=== PATIENT | male | born 1955 | race Caucasian/White ===

== ENCOUNTER → 2019-08-01 13:23 | Outpatient (CLI) | payer MEDICARE, OTHER, SELFPAY ==
--- NOTE | 2019-08-01 13:33 | US_ITS ---
APPROVED REPORT Exam Type: Lower Extremity Segmental Pressures Prop And Scenery Maker: Phuong Fam RVT Indications Claudication: Bilaterally Rest Pain: Bilaterally History of Smoking Risk Factors CAD Hyperlipidemia Cardiac Disease Diabetes History of Smoking Pressures/Indices Right Indices Left Indices Brachial 113.00 mmHg Brachial 115.00 mmHg Low Thigh 138.00 mmHg 1.20 Low Thigh 112.00 mmHg 0.97 Calf 140.00 mmHg 1.22 Calf 128.00 mmHg 1.11 Ankle(PT) 165.00 mmHg 1.43 Ankle(PT) 112.00 mmHg 0.97 Ankle(DP) 157.00 mmHg 1.37 Ankle(DP) 116.00 mmHg 1.01 Digit 71.00 mmHg 0.62 Digit 29.00 mmHg 0.25 Findings RT VIKTOR:1.43 LT VIKTOR:0.97 RT TBI:0.62 LT TBI:0.25 NORMAL PULSES BILATERAL DAMPENED WAVEFORM SEEN LEFT ANKLE, OTHER LEVELS ARE NORMAL Conclusion RT VIKTOR:1.43 LT VIKTOR:0.97 RT TBI:0.62 LT TBI:0.25 NORMAL PULSES BILATERAL DAMPENED WAVEFORM SEEN LEFT ANKLE, OTHER LEVELS ARE NORMAL ELEVATED RIGHT VIKTOR SUGGEST VESSEL HARDENING FROM PVD LOW LEFT TBI SUGGESTS SMALL VESSEL DISEASE Electronically signed by : Jordi Veliz MD 08/01/2019 18:17:34
== END ==
PROVIDERS: PCP Internal Medicine Adolescent Medicine; Visit Provider Internal Medicine Adolescent Medicine
DX: I70.213 Atherosclerosis of native arteries of extremities with intermittent claudication, bilateral legs (principal); I25.10 Atherosclerotic heart disease of native coronary artery without angina pectoris
CPT/HCPCS: 93923

== ENCOUNTER 2019-08-16 10:00 | Outpatient (RCR) | payer MEDICARE, SELFPAY | END 2019-08-16 10:05 | disposition home or self-care (01) | LOC: PT 10:00 | PROVIDERS: PCP Internal Medicine Adolescent Medicine; Visit Provider Internal Medicine Adolescent Medicine | DX: S39.012A Strain of muscle, fascia and tendon of lower back, initial encounter (principal) | CPT/HCPCS: 97010; 97014; 97110; 97163; G0283 ==

== ENCOUNTER → 2020-08-05 06:28 | Outpatient (CLI) | payer MEDICARE, SELFPAY ==
--- NOTE | 2020-08-05 06:29 | US_ITS ---
PROCEDURE: US AORTA CLINICAL INDICATION: tobacco user Aortic aneurysm screening COMPARISON: No exams were available for comparison FINDINGS: There is a fusiform aneurysm noted in the mid abdominal aorta measuring 3.4 x 3.5 cm. This is 4 cm below the xiphoid region. Common iliacs have an unremarkable appearance. IMPRESSION: 3.5 cm fusiform abdominal aortic aneurysm Dictated by: Jordi Veliz MD 08/05/2020 18:02 Jordi Veliz MD in [place] 08/05/2020 18:02
--- NOTE | 2020-08-05 06:29 | CA_ITS ---
APPROVED REPORT Explosive Operator Grenade: Phuong Fam RVT Laterality: Bilateral Study Quality: Good Indications: bilateral carotid bruits,cad Risk Factors Hyperlipidemia Smoking Medications Aspirin Doppler Spectral Velocity Analysis ECA (R) 116.60/16.00 cm/s ECA (L) 133.90/17.30 cm/s dICA (R) 111.20/33.10 cm/s dICA (L) 82.80/26.00 cm/s Daniel (R) 124.00/24.60 cm/s Daniel (L) 107.90/28.90 cm/s pICA (R) 163.60/34.20 cm/s pICA (L) 101.10/23.10 cm/s dCCA (R) 93.40/23.10 cm/s dCCA (L) 86.70/24.10 cm/s pCCA (R) 82.80/11.60 cm/s pCCA (L) 114.40/31.00 cm/s Vert (R) 79.10/21.40 cm/s Vert (L) 49.10/11.60 cm/s ICA/CCA 1.75 ICA/CCA 1.24 Findings Study suggests 50-69% stenosis of the right internal cartoid artery. Study suggests less than 20% stenosis of the left internal cartoid artery. Antegrade flow seen bilateral vertebral arteries. Conclusion Study suggests 50-69% stenosis of the right internal cartoid artery. Study suggests less than 20% stenosis of the left internal cartoid artery. Antegrade flow seen bilateral vertebral arteries. Electronically signed by : Jordi Veliz MD 08/05/2020 18:30:38
--- NOTE | 2020-08-05 06:29 | NM_ITS ---
APPROVED REPORT Exam: Nuclear Stress Test Indication: SOB, CAD, CABG, DM, High cholesterol, Tobacco use, Family history Patient Location: Outpatient Stress Tech: Valeria Pike ID Tech:Ileana Lucas ARRT, RT (R)(N) Ht: 5 ft 11 in Wt: 260 lbs HR: 59 bpm BP: 140/87 mmHg BSA: 2.36 m2 BMI: 36.2 History: SOB, CAD, CABG, DM, High cholesterol, Tobacco use, Family history Procedure: Patient received a 0.4 mg of intravenous Lexiscan, resting heart rate 59 bpm, resting blood pressure 140/87 mmHg, with Lexiscan maximum heart rate achived was 80 bpm which is % of the maximum predicted heart rate and blood pressure was 129/63 mmHg. Cardiac Stress and Resting SPECT Images: Cardiac Stress and Resting SPECT images were obtained using technetium 99m Myoview 31.8 mCi stress and 10.42 mCi at rest. EF 55% no fixed or reversible defects Conclusion: EF 55% no fixed or reversible defects Electronically signed by : Jordi Veliz MD 08/11/2020 13:24:00
--- NOTE | 2020-08-05 06:29 | CA_ITS ---
APPROVED REPORT Exam: Pharmacologic Technologist: Valeria Pike Ht: 5 ft 11 in Wt: 260 lbs BSA: 2.36 m2 HR: 59 bpm BP: 140/87 mmHg Indications: CAD, SOB, Bruit bilat Medical History Medications: Omeprazole,,,,, Aspirin,,,,, Metformin,,,,, Trazadone,,,,, Ferrous sulfate,,,,, Vitamin B12,,,,, Vitamin D3,,,,, Atorvastatin,,,,, HCTZ,,,,, Carvedilol,,,,, ClonAZEPAM,,,,, Calcium,,,,, Stress Test Details Test: LEXISCAN HR Resting HR: 61 bpm Max Heart Rate (APMHR): 154 bpm Max HR Achieved: 84 bpm Target HR (85% APMHR): 130 bpm % of APMHR: 54 Recovery HR: 73 bpm BP Resting BP: 140.0/87.0 mmHg Max BP: 140.0/87.0 mmHg Recovery BP: 129.0/64.0 mmHg ECG Resting ECG: Normal sinus rhythm, rightward axis, PVCs, T wave abnormality inferiorly. Clinical Exercise duration: 04:03 min Highest Stage Achieved: Exercise capacity: 1.0 METs Stress ECG Conclusion Symptoms: Chest tightness, brief shortness of air, mild stomach discomfort. Arrhythmias/Ectopy: Frequent isolated PVCs ST-T Changes: No significant changes. Conclusion: Unremarkable Lexiscan stress. Myoview images reported separately. Electronically signed by : Alejandro Fajardo, 08/07/2020 15:14:50
--- NOTE | 2020-08-05 08:09 | HMH.ITSHM ---
Current Home Medications as stated by this patient Fernando Joyner or airline security representative. []ASA ATORVASTATIN CALCIUM CARVEDILOL CENTRUM SILVER CLONAZEPAM HCTZ IRON METFORMIN OMEPRAZOLE TRAZODONE VENLAFAXINE B12 VITMAIN D3
[2020-08-05 09:16] LABS: Basophils % 0.4 % (0.1-2.0); Eosinophils # 0.2 K/mm3 (0.0-0.4); Eosinophils % 2.7 % (0.1-12.0); Hematocrit 45.8 % (42.0-52.0); Hemoglobin 14.5 g/dL (14.1-18.0); Lymphocytes % 32.6 % (10-50); Mean Corpuscular HGB Conc 31.8 g/dL (31.8-35.4); Mean Corpuscular Hemoglobin 28.8 pg (27.0-31.2); Mean Corpuscular Volume 90.7 fl (80-94); Mean Platelet Volume 8.4 fl (7.4-10.4); Monocytes # 0.4 K/mm3 (0.1-1.0); Monocytes % 6.4 % (1.7-9.3); Neutrophils # 3.5 K/mm3 (1.8-7.8); Neutrophils % 57.9 % (37.0-80.0); Platelet Count 134 K/mm3 (142-424); Red Blood Count 5.05 M/mm3 (4.60-6.20); Red Cell Distribution Width 14.6 % (11.5-17.5)
[2020-08-05 09:44] LABS: Chloride 104 mmol/L (98-107); Sodium 141 mmol/L (136-145)
[2020-08-05 09:45] LABS: Potassium 4.8 mmoL/L (3.5-5.1)
[2020-08-05 09:47] LABS: Alanine Aminotransferase 60 U/L (12-78); Alkaline Phosphatase 70 U/L (38-126); Anion Gap 10.8 mEq/L (5-15); Aspartate Amino Transferase 42 U/L (17-59); Bilirubin,Direct 0.1 mg/dl (0.0-0.4); Bilirubin,Indirect 0.7 mg/dL (0.0-0.9); Bilirubin,Total 0.8 mg/dl (0.2-1.3); Bilirubin,Unconjugated 0.7 mg/dL (0.0-1.1); Blood Urea Nitrogen 11 mg/dl (9-20); Carbon Dioxide 31 mmol/L (22.0-30.0); Cholesterol 118 mg/dl (140-200); Estimated Glomerular Filt Rate 113 ml/min (>60); GFR (African American) 137 ML/MIN (>60); Triglycerides 110 mg/dl (30-150); VLDL Cholesterol 22 mg/dL (0-40)
[2020-08-05 09:48] LABS: Albumin Level 4.5 g/dl (3.5-5.0); Calcium 9.8 mg/dl (8.4-10.2); Glucose 132 mg/dl (74-100); HDL Cholesterol 40 mg/dl (40-60); Total Protein,Serum 7.4 g/dl (6.3-8.2)
[2020-08-05 09:59] LABS: Direct LDL Cholesterol 59.82 mg/dL (100-129)
[2020-08-05 10:00] LABS: NT Pro Brain Natriuretic Pep. 540 pg/mL (0-125)
[2020-08-05 10:05] LABS: Free T4 (Free Thyroxine) 1.01 ng/dl (0.78-2.19)
[2020-08-05 10:18] LABS: Thyroid Stimulating Hormone 1.25 uIU/mL (0.465-4.68)
== END ==
PROVIDERS: PCP Internal Medicine Adolescent Medicine; Visit Provider Internal Medicine Cardiovascular Disease
DX: E11.9 Type 2 diabetes mellitus without complications (principal); G47.33 Obstructive sleep apnea (adult) (pediatric); I25.810 Atherosclerosis of coronary artery bypass graft(s) without angina pectoris; R06.00 Dyspnea, unspecified; R09.89 Other specified symptoms and signs involving the circulatory and respiratory systems; R60.9 Edema, unspecified; R94.31 Abnormal electrocardiogram [ECG] [EKG]; Z72.0 Tobacco use; Z95.1 Presence of aortocoronary bypass graft; Z79.84 Long term (current) use of oral hypoglycemic drugs
CPT/HCPCS: 36415; 76770; 78452; 80048; 80061; 80076; 83880; 84439; 84443; 85025; 93017; 93306; 93880; A9502; J2785

== ENCOUNTER → 2020-08-05 08:52 | Outpatient (CLI) | payer MEDICARE, SELFPAY | PROVIDERS: Visit Provider Internal Medicine Cardiovascular Disease | DX: I25.10 Atherosclerotic heart disease of native coronary artery without angina pectoris (principal) | CPT/HCPCS: 36415; 80048; 80061; 80076; 83880; 84439; 84443; 85025 ==

== ENCOUNTER → 2020-10-13 08:23 | Outpatient (CLI) | payer MEDICARE, SELFPAY ==
[2020-10-14 09:22] LABS: Hemoglobin A1C 6.2 % (4.0-6.0)
== END ==
PROVIDERS: Visit Provider Internal Medicine Adolescent Medicine
DX: E11.9 Type 2 diabetes mellitus without complications (principal); Z79.84 Long term (current) use of oral hypoglycemic drugs
CPT/HCPCS: 83036

== ENCOUNTER → 2020-10-30 11:31 | Outpatient (CLI) | payer MEDICARE, SELFPAY | PROVIDERS: Visit Provider Internal Medicine Cardiovascular Disease | DX: R06.00 Dyspnea, unspecified (principal); I25.810 Atherosclerosis of coronary artery bypass graft(s) without angina pectoris; R60.9 Edema, unspecified; R94.31 Abnormal electrocardiogram [ECG] [EKG]; Z95.1 Presence of aortocoronary bypass graft; Z72.0 Tobacco use | CPT/HCPCS: 93225 ==

== ENCOUNTER → 2020-11-10 15:02 | Outpatient (CLI) | payer MEDICARE, SELFPAY ==
--- NOTE | 2020-11-10 15:02 | MR_ITS ---
PROCEDURE: MR HEAD/BRAIN WO CON CLINICAL INDICATION: tremor, dysmetria Tremor and dizziness. No prior. COMPARISON: No exams were available for comparison TECHNIQUE: Routine multiplanar multi echo sequences are performed without gadolinium enhancement. FINDINGS: No midline shift, mass effect, intracranial hemorrhage, or hydrocephalus. The cerebellopontine angles, cerebellum, and brainstem have an unremarkable appearance. There is mild generalized atrophy with nonspecific minimal periventricular T2 white matter changes. The pituitary, optic chiasm, corpus callosum, and craniocervical junction have an unremarkable appearance. No mastoid effusion or sinus air-fluid level. No evidence of acute infarction. There is some mild superior vermian atrophy. The the hippocampal gyri and temporal horns have an unremarkable appearance IMPRESSION: There is mild generalized cerebral atrophy and superior vermian atrophy. Otherwise negative Dictated by: Jordi Veliz MD 11/11/2020 07:39 Jordi Veliz MD in [place] 11/11/2020 07:39
== END ==
PROVIDERS: PCP Internal Medicine Adolescent Medicine; Visit Provider Specialist
DX: R25.1 Tremor, unspecified (principal)
CPT/HCPCS: 70551

== ENCOUNTER → 2020-11-12 10:03 | Outpatient (CLI) | payer MEDICARE, SELFPAY ==
[2020-11-12 11:18] LABS: Anion Gap 11.6 mEq/L (5-15); Blood Urea Nitrogen 11 mg/dl (9-20); Calcium 9.6 mg/dl (8.4-10.2); Carbon Dioxide 29 mmol/L (22.0-30.0); Chloride 106 mmol/L (98-107); Estimated Glomerular Filt Rate 97 ml/min (>60); GFR (African American) 117 ML/MIN (>60); Glucose 119 mg/dl (74-100); Potassium 5.6 mmoL/L (3.5-5.1); Sodium 141 mmol/L (136-145)
== END ==
PROVIDERS: Visit Provider Internal Medicine Cardiovascular Disease
DX: G47.33 Obstructive sleep apnea (adult) (pediatric) (principal); I25.810 Atherosclerosis of coronary artery bypass graft(s) without angina pectoris; R06.00 Dyspnea, unspecified; R60.9 Edema, unspecified; R94.31 Abnormal electrocardiogram [ECG] [EKG]; Z72.0 Tobacco use; Z95.1 Presence of aortocoronary bypass graft
CPT/HCPCS: 80048

== ENCOUNTER → 2020-11-17 10:10 | Outpatient (CLI) | payer MEDICARE, SELFPAY ==
[2020-11-17 12:10] LABS: Anion Gap 12.4 mEq/L (5-15); Blood Urea Nitrogen 11 mg/dl (9-20); Calcium 9.2 mg/dl (8.4-10.2); Carbon Dioxide 25 mmol/L (22.0-30.0); Chloride 106 mmol/L (98-107); Estimated Glomerular Filt Rate 113 ml/min (>60); GFR (African American) 137 ML/MIN (>60); Glucose 113 mg/dl (74-100); Magnesium 1.8 mg/dl (1.6-2.3); Potassium 4.4 mmoL/L (3.5-5.1); Sodium 139 mmol/L (136-145)
[2020-11-17 12:29] LABS: Free Thyroxine Index 2.6 ug/dL (5.93-13.13); T4 (Thyroxine) 7.4 ug/dl (5.53-11.0); Triiodothryronine (T3) Uptake 35 % (23.5-40.5)
[2020-11-17 12:42] LABS: Thyroid Stimulating Hormone 1.25 uIU/mL (0.465-4.68)
[2020-11-17 13:18] LABS: Vitamin B12 960 pg/mL (239-931)
[2020-11-17 13:27] LABS: Folate > 20.00 ng/mL
== END ==
PROVIDERS: Specialist; Visit Provider Physician Assistant
DX: E11.69 Type 2 diabetes mellitus with other specified complication (principal); G47.33 Obstructive sleep apnea (adult) (pediatric); I25.810 Atherosclerosis of coronary artery bypass graft(s) without angina pectoris; R06.00 Dyspnea, unspecified; R60.9 Edema, unspecified; R94.31 Abnormal electrocardiogram [ECG] [EKG]; Z72.0 Tobacco use; Z95.1 Presence of aortocoronary bypass graft; Z79.84 Long term (current) use of oral hypoglycemic drugs
CPT/HCPCS: 36415; 80048; 82607; 82746; 83735; 84436; 84443; 84479

== ENCOUNTER → 2020-11-26 20:03 | Outpatient (CLI) | payer MEDICARE, SELFPAY | PROVIDERS: PCP Internal Medicine Adolescent Medicine; Visit Provider Specialist | DX: G47.33 Obstructive sleep apnea (adult) (pediatric) (principal); R40.0 Somnolence; R53.83 Other fatigue; E66.9 Obesity, unspecified; Z68.35 Body mass index [BMI] 35.0-35.9, adult | CPT/HCPCS: 95810 ==

== ENCOUNTER → 2021-01-12 08:00 | Outpatient (CLI) | payer MEDICARE, SELFPAY ==
[2021-01-13 09:07] LABS: Hemoglobin A1C 6.6 % (4.0-6.0)
[2021-01-13 09:13] LABS: Chloride 105 mmol/L (98-107); Potassium 4.6 mmoL/L (3.5-5.1); Sodium 139 mmol/L (136-145)
[2021-01-13 09:15] LABS: Alanine Aminotransferase 94 U/L (12-78); Aspartate Amino Transferase 60 U/L (17-59); Blood Urea Nitrogen 11 mg/dl (9-20); Estimated Glomerular Filt Rate 97 ml/min (>60); GFR (African American) 117 ML/MIN (>60)
[2021-01-13 09:16] LABS: Albumin Level 4.2 g/dl (3.5-5.0); Albumin/Globulin Ratio 1.5 (1.1-1.8); Alkaline Phosphatase 93 U/L (38-126); Anion Gap 14.6 mEq/L (5-15); Bilirubin,Total 0.5 mg/dl (0.2-1.3); Carbon Dioxide 24 mmol/L (22.0-30.0); Chol/HDL Ratio 2.9 (1-3.5); Cholesterol 108 mg/dl (140-200); Globulin 2.8 g/dL (1.3-3.2); Glucose 140 mg/dl (74-100); HDL Cholesterol 37 mg/dl (40-60); Triglycerides 100 mg/dl (30-150); VLDL Cholesterol 20 mg/dL (0-40)
[2021-01-13 09:27] LABS: Direct LDL Cholesterol 55.28 mg/dL (100-129)
== END ==
PROVIDERS: Visit Provider Internal Medicine Adolescent Medicine
DX: E11.9 Type 2 diabetes mellitus without complications (principal); E78.5 Hyperlipidemia, unspecified; Z79.84 Long term (current) use of oral hypoglycemic drugs
CPT/HCPCS: 80053; 80061; 83036

== ENCOUNTER → 2021-03-11 09:30 | Outpatient (CLI) | payer MEDICARE, SELFPAY ==
[2021-03-11 11:01] LABS: Alanine Aminotransferase 84 U/L (12-78); Alkaline Phosphatase 77 U/L (38-126); Aspartate Amino Transferase 58 U/L (17-59); Bilirubin,Direct 0.2 mg/dl (0.0-0.4); Bilirubin,Indirect 0.5 mg/dL (0.0-0.9); Bilirubin,Total 0.7 mg/dl (0.2-1.3); Bilirubin,Unconjugated 0.5 mg/dL (0.0-1.1); Chol/HDL Ratio 2.8 (1-3.5); Cholesterol 104 mg/dl (140-200); HDL Cholesterol 37 mg/dl (40-60); Total Protein,Serum 6.5 g/dl (6.3-8.2); Triglycerides 145 mg/dl (30-150); VLDL Cholesterol 29 mg/dL (0-40)
[2021-03-11 11:12] LABS: Direct LDL Cholesterol 49.03 mg/dL (100-129)
== END ==
PROVIDERS: Visit Provider Internal Medicine Cardiovascular Disease
DX: G47.33 Obstructive sleep apnea (adult) (pediatric); I25.10 Atherosclerotic heart disease of native coronary artery without angina pectoris; R06.00 Dyspnea, unspecified; R09.89 Other specified symptoms and signs involving the circulatory and respiratory systems; R60.9 Edema, unspecified; R94.31 Abnormal electrocardiogram [ECG] [EKG]; Z72.0 Tobacco use; Z95.1 Presence of aortocoronary bypass graft; Z79.84 Long term (current) use of oral hypoglycemic drugs; E11.9 Type 2 diabetes mellitus without complications
CPT/HCPCS: 36415; 80061; 80076

== ENCOUNTER → 2021-11-10 11:01 | Outpatient (CLI) | payer MEDICARE, SELFPAY ==
--- NOTE | 2021-11-10 11:07 | CT_ITS ---
FINAL REPORT CLINICAL HISTORY: HISORY OF NICOTINE DEPENDENCE, smoker 1 ppd x 43 years. family hx CAD/Bypass FINDINGS: Low-Dose Chest CT CTDI vol (mGy): 2.7 DLP (mGy-cm): 113.1 Axial images were obtained from the lung apex to the mid abdomen by computed tomography. Low-dose protocol was utilized. FINDINGS: CHEST: There are postoperative changes from median sternotomy. There is no axillary adenopathy. There is no hilar or mediastinal adenopathy. The heart is proper size. There is no pericardial or pleural effusion. Limited images of the upper abdomen demonstrate postoperative changes of the stomach. Lung window images demonstrate mild changes of emphysema and mild pulmonary scarring. There is mild diffuse bronchial wall thickening consistent with bronchitis. IMPRESSION: No mass or nodule is identified. Mild diffuse bronchial wall thickening consistent with bronchitis. Lung RADS category 1. Recommend 12 month follow-up low-dose chest CT. Reviewed, Interpreted and Dictated by Je Alexander III, MD Transcribed by Mei Ramos Authenticated and [facility]
--- NOTE | 2021-11-10 11:27 | CA_ITS ---
FINAL REPORT TECHNIQUE: Color Doppler, duplex Doppler and stack scale sonography of the bilateral neck vasculature was performed. Velocities were measured in the carotid arteries. Stenosis evaluation based on velocity criteria. CLINICAL HISTORY: bilateral carotid artery stenosis FINDINGS: The peak systolic velocity of the right common carotid artery is 75 cm/sec and internal carotid artery 119 cm/sec. The diastolic velocity in the internal carotid artery is 30 cm/sec. The ICA/CCA ratio is 1.6. Visually, a moderate amount of plaque is seen. These findings are consistent with less than 50% stenosis. The external carotid artery is patent. The right vertebral artery is patent with antegrade flow. The peak systolic velocity of the left common carotid artery is 72 cm/sec and internal carotid artery 81 cm/sec. The diastolic velocity in the internal carotid artery is 28 cm/sec. The ICA/CCA ratio is 1.2. Visually, a mild amount of plaque is seen. These findings are consistent with less than 50% stenosis. The external carotid artery is patent. The left vertebral artery is patent with antegrade flow. IMPRESSION: Less than 50% bilateral carotid stenosis. Bilateral patent vertebral arteries. If indicated, CTA or MRA could further evaluate. Reviewed, Interpreted and Dictated by Je Alexander III, MD Transcribed by Shaquille Blank Authenticated and [facility]
== END ==
PROVIDERS: PCP Internal Medicine Adolescent Medicine; Visit Provider Internal Medicine Adolescent Medicine
DX: I65.23 Occlusion and stenosis of bilateral carotid arteries (principal); Z87.891 Personal history of nicotine dependence; Z12.2 Encounter for screening for malignant neoplasm of respiratory organs
CPT/HCPCS: 71271; 93880

== ENCOUNTER → 2021-11-30 15:26 | Outpatient (CLI) | payer MEDICARE, SELFPAY | PROVIDERS: PCP Internal Medicine Adolescent Medicine; Visit Provider Internal Medicine | DX: Z01.812 Encounter for preprocedural laboratory examination (principal); Z20.822 Contact with and (suspected) exposure to COVID-19; Z12.11 Encounter for screening for malignant neoplasm of colon | CPT/HCPCS: C9803; U0003; U0005 ==

== ENCOUNTER 2021-12-02 09:08 | Day surgery (SDC) | payer MEDICARE, SELFPAY ==
[2021-11-30 12:23] VITALS: BMI 29.8
[2021-12-02 09:27] VITALS: BP 138/60; PULSE 66; RESP 18; TEMP 36.4; O2SAT 100
[2021-12-02 09:55] LABS: POC Glucose,Bedside 106 (70-110)
--- NOTE | 2021-12-02 10:28 | P.PN_ITS ---
[facility] Anesthesia Checklist - Patient Identification Patient Identification: Arm Band - Structural Data Admitted From: Home Planned Operative Procedure/s: Colonoscopy Consent for Planned Operative Procedure(s) Verified: Yes - NPO Status Verified Time NPO: 07:30 (Water) - Airway Assessment C-Spine Mobility Assessed: Yes TMJ Mobility Assessed: Yes Dentition: Poor Dentition - Neurological Assessment Level of Consciousness: Awake Hx Seizures: No Numbness or tingling in extremities: No - Anesthesia Plan Anesthesia Risk discussed: Yes Anesthesia Plan: Verified ASA Class: III Anesthesia Type: MAC [facility] History I have reviewed the patient's past medical history: Yes Medical History: Reports:: Cancer (SKIN CANCER ON BACK REMOVED), Coronary Artery Disease, Diabetes Mellitus Type 2, Gastroesophageal Reflux Disease(GERD), Hyperlipidemia, Hypertension Denies:: Diabetes Mellitus Type 1, Internal Pacemaker, MRSA, Seizures *Have you ever received a pneumonia vaccine?: Yes *Have you received a flu vaccine this season?: Yes Other Medical History: Reports: Anemia, Other Anesthesia experience/problems:: None Other Surgeries: Yes: CABG, Colonoscopy, Hernia Repair. No: Pacemaker Amputation: No Fractures: No - *Social History Last grade of school completed: High school graduate Smoking Status: Current every day smoker Tobacco Type: cigarettes # Packs/Day (cigarettes): 1 #Yrs smoked (if former smoker): 40 Smoking End Date: QUIT 18 YRS RESTARTED 3 YEARS AGO Alcohol Intake: current Alcohol Intake Frequency:: a few times a month Substance Use Type: denies use *Occupational Status:: retired Housing: house Household Members: none *Travel in the last 8 weeks: None Family Hx:: Diabetes, Other
[2021-12-02 11:02] VITALS: O2SAT 100
[2021-12-02 11:23] VITALS: BP 85/48; PULSE 61; RESP 16; TEMP 36.6; O2SAT 92
--- NOTE | 2021-12-02 11:25 | P.PCN_ITS ---
- Procedure: Date: 12/02/21 Patient Date of :: 1955 Procedure Performed:: Colonoscopy Indications:: The patient is a 66 year old who presents for surveillance colonoscopy for a history of colon polyps. Performing Provider:: Eddie Jarquin MD Referring Provider:: Joseph Duron MD Sedation:: See RN records Procedure:: After placing the patient in the left lateral decubitus position, the colonoscopy was gently inserted into the rectum and under direct visualization advanced to the cecum which was identified by transillumination in the right lo wer quadrant, identification of the ileocecal valve, appendiceal orifice, and cecal strap. Color, texture, mucosa, and anatomy of the colon were carefully examined with the scope. Findings:: Anal canal: normal Rectum: Internal hemorrhoids Sigmoid colon: Diverticulosis Descending colon: normal without polyps or inflammatory changes Splenic flexure: normal Transverse colon: normal without polyps or inflammatory changes Hepatic flexure: normal Ascending colon: Diverticulosis Cecum: normal Terminal ileum: not visualized Quality of the bowel preparation was fair. Time spent irrigating and cleansing mucosa. Recommendations:: Higher fiber diet Repeat colonoscopy in 5 years Complications:: None Estimated blood obtained (mL): 0
[2021-12-02 11:33] VITALS: BP 89/54; PULSE 67; RESP 16; TEMP 36.6; O2SAT 92
[2021-12-02 11:43] VITALS: BP 126/71; PULSE 74; RESP 16; TEMP 36.6; O2SAT 97
--- NOTE | 2021-12-02 11:51 | PC.NURSE ---
pt had stool all over to feet. RFlorevenita RN and Bertrand RN cleaned up patient and changed sheets.
[2021-12-02 12:03] VITALS: BP 135/74; PULSE 68; RESP 18; TEMP 36.6; O2SAT 98
== END 2021-12-02 12:03 | disposition home or self-care (01) ==
LOC: OUTP 09:09
PROVIDERS: PCP Internal Medicine Adolescent Medicine; Visit Provider Internal Medicine
PROC: 0DJD8ZZ Inspection of Lower Intestinal Tract, Via Natural or Artificial Opening Endoscopic (ICD-10-PCS; CPT 45378; principal; 2021-12-02 10:30)
DX: Z12.11 Encounter for screening for malignant neoplasm of colon (principal); Z86.010 Personal history of colon polyps; E78.5 Hyperlipidemia, unspecified; E11.9 Type 2 diabetes mellitus without complications; I10 Essential (primary) hypertension; Z95.1 Presence of aortocoronary bypass graft; Z72.0 Tobacco use
CPT/HCPCS: G0105; 82962; J2704

== ENCOUNTER 2022-04-23 13:48 | Outpatient (RCR) | payer MEDICARE, SELFPAY ==
--- NOTE | 2022-04-23 13:58 | HMH.OTOPEV ---
OT Inpatient Evaluation Rehab OT Outpatient Eval Start: 04/23/22 13:39 Freq: Status: Active Protocol: Document 04/23/22 13:40 ALESSANDROSULEIMAN (Rec: 04/23/22 13:58 MARCOMARIANA [id number]) E-signed By Shanta Martínez, OT Outpatient Therapy Subjective History Subjective History 67 year old male referred to skilled OP OT services for left shld pain. Patient staeted to having left shld pain for the past 6 months with no relief of pain. Patient stated to have a history of falling at home and landing on the left shoulder ~2 months a ago. Patient recieved oral steriod medication for 5 days from PCP to decrease pain levels, however Patient stated to have no relief with it. Chief Complaint Pain Symptom Type Ache,Throb,Numbness,Tingling Symptoms Relieved By Nothing Symptoms Aggravated By Physical Activity Prior Functional Limitations None Current Functional Limitations Reaching,Lifting,Recreation Activity Symptom Description Constant and Continuous Level of pain today (0-10) 4 Pain scale - at its best (0-10) 4 Pain scale - at its worst (0-10) 8 Shoulder/Elbow Eval Shoulder Objective Measurements Shoulder ROM Left Shoulder Abduction Active Range of 88 Motion (degrees) Shoulder Flexion Active Range of Motion 120 (degrees) Query Text: Shoulder External Rotation Passive Range 55 of Motion (degrees) Shoulder Internal Rotation Passive Range 35 of Motion (degrees) pain with active ROM shoulder exam left standard Shoulder MMT Shoulder Abduction Strength Grade 3- Fair- Shoulder Extension Strength Grade 3- Fair- Shoulder Flexion Strength Grade 3- Fair- Shoulder Horizontal Abduction Strength 3- Fair- Grade Shoulder Horizontal Adduction Strength 3- Fair- Grade Infraspinatus/Teres Minor Strength Grade 3- Fair- Shoulder External Rotation Strength 3- Fair- Grade Shoulder Internal Rotation Strength 2+ Poor+ Grade Shoulder Special Tests impingement sign present shoulder exam left standard Shoulder Empty Can (Supraspinatus) Test Positive Left Shoulder Evans-Venancio Impingement Positive Left Test Elbow Objective Measuremen
== END 2022-04-23 13:50 | disposition home or self-care (01) ==
LOC: OT 13:48
PROVIDERS: PCP Nurse Practitioner Family; Visit Provider Nurse Practitioner Family
DX: M25.512 Pain in left shoulder (principal); M75.02 Adhesive capsulitis of left shoulder
CPT/HCPCS: 97010; 97014; 97110; 97140; 97165; 97530; G0283

== ENCOUNTER 2022-05-03 08:00 | Outpatient (RCR) | payer MEDICARE, SELFPAY | END 2022-05-03 08:05 | disposition home or self-care (01) | LOC: OT 08:00 | PROVIDERS: PCP Nurse Practitioner Family; Visit Provider Nurse Practitioner Family | DX: M25.512 Pain in left shoulder (principal) ==

== ENCOUNTER → 2022-05-24 09:59 | Outpatient (CLI) | payer MEDICARE, SELFPAY ==
[2022-05-24 10:49] LABS: Alanine Aminotransferase 62 U/L (12-78); Albumin Level 4.5 g/dl (3.5-5.0); Alkaline Phosphatase 101 U/L (38-126); Aspartate Amino Transferase 56 U/L (17-59); Bilirubin,Direct 0.1 mg/dl (0.0-0.4); Bilirubin,Indirect 0.7 mg/dL (0.0-0.9); Bilirubin,Total 0.8 mg/dl (0.2-1.3); Bilirubin,Unconjugated 0.7 mg/dL (0.0-1.1); Chol/HDL Ratio 2.7 (1-3.5); Cholesterol 113 mg/dl (140-200); HDL Cholesterol 42 mg/dl (40-60); Total Protein,Serum 7.1 g/dl (6.3-8.2); Triglycerides 155 mg/dl (30-150); VLDL Cholesterol 31 mg/dL (0-40)
[2022-05-24 11:00] LABS: Direct LDL Cholesterol 49.94 mg/dL (100-129)
== END ==
PROVIDERS: PCP Nurse Practitioner Family; Visit Provider Nurse Practitioner
DX: E78.5 Hyperlipidemia, unspecified (principal); I25.810 Atherosclerosis of coronary artery bypass graft(s) without angina pectoris; I65.23 Occlusion and stenosis of bilateral carotid arteries; I71.40 Abdominal aortic aneurysm, without rupture, unspecified; Z95.1 Presence of aortocoronary bypass graft
CPT/HCPCS: 36415; 80061; 80076

== ENCOUNTER → 2022-12-09 08:43 | Outpatient (CLI) | payer MEDICARE, SELFPAY ==
--- NOTE | 2022-12-09 08:44 | US_ITS ---
FINAL REPORT TECHNIQUE: Limited sonographic images of the abdominal aorta were obtained. CLINICAL HISTORY: AAA-- no prev here FINDINGS: ABDOMINAL AORTA ANEURYSM (AAA) SCREENING There is an abdominal aortic aneurysm measuring up to 4.1 cm. There is mild aneurysmal dilatation of one of the common iliac arteries. IMPRESSION: Abdominal aortic aneurysm measures 4.1 cm. Borderline aneurysmal dilatation of one of the common iliac arteries. If indicated, CTA could further evaluate. Reviewed, Interpreted and Dictated by Je Alexander III, MD Transcribed by Corine Ann Authenticated and [facility]
== END ==
PROVIDERS: PCP Nurse Practitioner Family; Visit Provider Nurse Practitioner Family
DX: E11.69 Type 2 diabetes mellitus with other specified complication (principal); E78.5 Hyperlipidemia, unspecified; G47.33 Obstructive sleep apnea (adult) (pediatric); I25.810 Atherosclerosis of coronary artery bypass graft(s) without angina pectoris; I71.40 Abdominal aortic aneurysm, without rupture, unspecified; R06.00 Dyspnea, unspecified; R60.9 Edema, unspecified; R94.31 Abnormal electrocardiogram [ECG] [EKG]; Z72.0 Tobacco use; Z95.1 Presence of aortocoronary bypass graft
CPT/HCPCS: 76770

== ENCOUNTER → 2023-06-01 09:35 | Outpatient (CLI) | payer MEDICARE, SELFPAY ==
[2023-06-01 09:59] LABS: Basophils % 0.4 % (0.1-2.0); Eosinophils # 0.1 K/mm3 (0.0-0.4); Eosinophils % 1.7 % (0.1-12.0); Hemoglobin 15.1 g/dL (14.1-18.0); Lymphocytes # 1.6 K/mm3 (0.7-4.5); Lymphocytes % 34.4 % (10-50); Mean Corpuscular HGB Conc 32.9 g/dL (31.8-35.4); Mean Corpuscular Hemoglobin 30.9 pg (27.0-31.2); Mean Corpuscular Volume 93.9 fl (80-94); Mean Platelet Volume 8.4 fl (7.4-10.4); Monocytes # 0.4 K/mm3 (0.1-1.0); Monocytes % 7.9 % (1.7-9.3); Neutrophils # 2.5 K/mm3 (1.8-7.8); Neutrophils % 55.6 % (37.0-80.0); Platelet Count 124 K/mm3 (142-424); Red Cell Distribution Width 14.1 % (11.5-17.5); White Blood Count 4.6 K/mm3 (4.8-10.8)
[2023-06-01 10:24] LABS: Alanine Aminotransferase 64 U/L (12-78); Albumin Level 4.3 g/dl (3.5-5.0); Alkaline Phosphatase 74 U/L (38-126); Anion Gap 10.7 mEq/L (5-15); Aspartate Amino Transferase 51 U/L (17-59); Bilirubin,Direct 0.1 mg/dl (0.0-0.4); Bilirubin,Indirect 0.6 mg/dL (0.0-0.9); Bilirubin,Total 0.7 mg/dl (0.2-1.3); Bilirubin,Unconjugated 0.6 mg/dL (0.0-1.1); Blood Urea Nitrogen 8 mg/dl (9-20); Calcium 8.7 mg/dl (8.4-10.2); Carbon Dioxide 23 mmol/L (22.0-30.0); Chloride 106 mmol/L (98-107); Chol/HDL Ratio 2.9 (1-3.5); Cholesterol 132 mg/dl (140-200); Estimated Glomerular Filt Rate 112 ml/min (>60); GFR (African American) 135 ML/MIN (>60); Glucose 113 mg/dl (74-100); HDL Cholesterol 45 mg/dl (40-60); Magnesium 1.7 mg/dl (1.6-2.3); Potassium 3.7 mmoL/L (3.5-5.1); Sodium 136 mmol/L (136-145); Total Protein,Serum 7.1 g/dl (6.3-8.2); Triglycerides 146 mg/dl (30-150); VLDL Cholesterol 29 mg/dL (0-40)
[2023-06-01 10:35] LABS: Direct LDL Cholesterol 66.54 mg/dL (100-129)
[2023-06-01 10:41] LABS: Free T4 (Free Thyroxine) 0.78 ng/dl (0.78-2.19)
[2023-06-01 10:54] LABS: Thyroid Stimulating Hormone 0.82 uIU/mL (0.465-4.68)
== END ==
LOC: LAB 16:00
PROVIDERS: PCP Nurse Practitioner Family; Visit Provider Physician Assistant
DX: E11.9 Type 2 diabetes mellitus without complications (principal); E78.5 Hyperlipidemia, unspecified; G47.33 Obstructive sleep apnea (adult) (pediatric); I25.10 Atherosclerotic heart disease of native coronary artery without angina pectoris; I71.40 Abdominal aortic aneurysm, without rupture, unspecified; R94.31 Abnormal electrocardiogram [ECG] [EKG]; Z72.0 Tobacco use; Z95.1 Presence of aortocoronary bypass graft; Z79.84 Long term (current) use of oral hypoglycemic drugs
CPT/HCPCS: 36415; 80048; 80061; 80076; 83735; 84439; 84443; 85025

== ENCOUNTER 2023-06-13 10:32 | Outpatient (CLI) | payer MEDICARE, SELFPAY ==
--- NOTE | 2023-06-13 10:33 | CA_ITS ---
APPROVED REPORT EXAM: Comprehensive 2D, Doppler, and color-flow Echocardiogram Equal Opportunity Specialist: Milla Cope RT(R) Ht: 5 ft 11 in Wt: 245lbs BSA: 2.30 BP: 136/67 mmHg Indications: CAD, smoker, HTN, hyperlipdiemia, TREV, DM, obesity, abn EKG, DD, hx CABG 8 years ago, AAA 2D Dimensions LVEF (Gonzalez's) 57.30 % M: 52 - 72 LV Volume 135.30 mL M: 62 - 150 LV Volume Index 58.8 mL/m2 M: 34 - 74 LA Volume 64.30 mL LA Volume Index 27.96 mL/m2 (M/F) 16-34 EF AP4 61.60 % EF AP2 54.1 % EF BP 57.3 % GL Strain -17.2 % M-Mode Dimensions RVDd 2.17 cm (0.9-2.6) LA Diam 4.47 cm (1.9-4.0) LVDd 5.86 cm (3.5-5.7) LVDs 4.50 cm (3.5-5.7) IVSd 1.02 cm (0.6-1.1) PWd 0.89 cm (0.6-1.1) EF (Teich) 45.80% FS 23.20% EDV (Teich) 170.50 mL ESV (Teich) 92.40 mL LV Diastology E Decel Time 197 (160-240 msec) E/A Ratio 1.3 Mitral Valve MV E Max Adrien. 78.0 (40-130 cm/s) MV A Velocity 62.0 (40-130 cm/s) E/A Ratio 1.26 MV PHT 58.0 ms Left Ventricle The left ventricle is normal size. The left ventricular systolic function is normal. The left ventricular ejection fraction is within the normal range. There is increased LV wall thickness. There is normal LV segmental wall motion. The left ventricular diastolic function is normal. LVEF is 55%. Right Ventricle The right ventricle is normal size. The right ventricular systolic function is normal. Atria The left atrium size is normal. The right atrium size is normal. There is no Doppler evidence of interatrial shunt. Aortic Valve The aortic valve is mildly thickened. There is no aortic valvular stenosis. Trace aortic regurgitation. Mitral Valve The mitral valve leaflets are mildly thickened. No evidence of mitral valve stenosis. Mild mitral regurgitation. Tricuspid Valve The tricuspid valve leaflets are thin and pliable. Trace tricuspid regurgitation. There is insufficient TR jet to estimate RVSP. Pulmonic Valve The pulmonary valve is normal in structure. Trace pulmonic regurgitation. Great Vessels The aortic root is normal in size. The ascending aorta is not well-visualized. IVC is normal in size and collapses >50% with inspiration. Pericardium There is no pericardial effusion. Other Information Study Quality: Fair Conclusion Normal biventricular systolic function. Mild mitral regurgitation. Electronically signed by : Sienna Nova MD 06/14/2023 11:22:55
== END 2023-06-13 23:59 ==
PROVIDERS: PCP Nurse Practitioner Family; Visit Provider Physician Assistant
DX: R94.31 Abnormal electrocardiogram [ECG] [EKG] (principal); Z95.1 Presence of aortocoronary bypass graft; I25.10 Atherosclerotic heart disease of native coronary artery without angina pectoris; Z72.0 Tobacco use
CPT/HCPCS: 93306

== ENCOUNTER 2023-07-13 11:17 | Outpatient (CLI) | payer MEDICARE, SELFPAY ==
[2023-07-13 11:26] LABS: MANUAL DIFFERENTIAL MANUAL DIFFERENTIAL (MANUAL DIFF)
[2023-07-13 11:49] LABS: Basophils % 0.5 % (0.1-2.0); Eosinophils # 0.1 K/mm3 (0.0-0.4); Eosinophils % 2.2 % (0.1-12.0); Hematocrit 46.2 % (42.0-52.0); Hemoglobin 15.4 g/dL (14.1-18.0); Lymphocytes # 1.8 K/mm3 (0.7-4.5); Lymphocytes % 30.5 % (10-50); Mean Corpuscular HGB Conc 33.3 g/dL (31.8-35.4); Mean Corpuscular Hemoglobin 31.4 pg (27.0-31.2); Mean Corpuscular Volume 94.3 fl (80-94); Mean Platelet Volume 8.4 fl (7.4-10.4); Monocytes # 0.4 K/mm3 (0.1-1.0); Monocytes % 6.6 % (1.7-9.3); Neutrophils # 3.6 K/mm3 (1.8-7.8); Neutrophils % 60.1 % (37.0-80.0); Platelet Count 144 K/mm3 (142-424); Red Blood Count 4.89 M/mm3 (4.60-6.20); Red Cell Distribution Width 13.9 % (11.5-17.5); White Blood Count 5.9 K/mm3 (4.8-10.8)
[2023-07-13 12:28] LABS: Erythrocyte Sedimentation Rate 10 mm/hr (0-20)
[2023-07-13 12:47] LABS: C-Reactive Protein 3.4 mg/L (0-4)
[2023-07-13 13:28] LABS: Vitamin B12 > 1000 pg/mL (239-931)
[2023-07-13 13:29] LABS: Eosinophils % 3 % (0-3); Lymphocytes % 30 % (10-50); Monocytes % 8 % (2-9); Neutrophils % 57 % (42-76); Total Cells Counted 100
[2023-07-13 13:32] LABS: Platelet Estimate Normal; RBC Morphology Normal
== END 2023-07-13 23:59 ==
LOC: LAB 11:18
PROVIDERS: PCP Nurse Practitioner Family; Visit Provider Nurse Practitioner Family
DX: R26.89 Other abnormalities of gait and mobility (principal); R42 Dizziness and giddiness
CPT/HCPCS: 36415; 82607; 85007; 85014; 85018; 85048; 85049; 85651; 86140

== ENCOUNTER 2023-07-21 09:43 | Outpatient (CLI) | payer MEDICARE, SELFPAY ==
[2023-07-21 10:19] LABS: Basophils % 0.3 % (0.1-2.0); Eosinophils # 0.1 K/mm3 (0.0-0.4); Eosinophils % 1.2 % (0.1-12.0); Hematocrit 45.6 % (42.0-52.0); Hemoglobin 15.3 g/dL (14.1-18.0); Lymphocytes # 1.9 K/mm3 (0.7-4.5); Lymphocytes % 28.8 % (10-50); Mean Corpuscular HGB Conc 33.6 g/dL (31.8-35.4); Mean Corpuscular Hemoglobin 31.2 pg (27.0-31.2); Mean Corpuscular Volume 92.9 fl (80-94); Monocytes # 0.5 K/mm3 (0.1-1.0); Monocytes % 7.1 % (1.7-9.3); Neutrophils % 62.6 % (37.0-80.0); Platelet Count 135 K/mm3 (142-424); Red Blood Count 4.91 M/mm3 (4.60-6.20); White Blood Count 6.4 K/mm3 (4.8-10.8)
[2023-07-21 10:58] LABS: Alanine Aminotransferase 59 U/L (12-78); Albumin Level 4.6 g/dl (3.5-5.0); Albumin/Globulin Ratio 1.7 (1.1-1.8); Alkaline Phosphatase 89 U/L (38-126); Anion Gap 12.2 mEq/L (5-15); Aspartate Amino Transferase 43 U/L (17-59); Bilirubin,Total 0.8 mg/dl (0.2-1.3); Blood Urea Nitrogen 11 mg/dl (9-20); Calcium 9.4 mg/dl (8.4-10.2); Carbon Dioxide 28 mmol/L (22.0-30.0); Chloride 101 mmol/L (98-107); Chol/HDL Ratio 3.3 (1-3.5); Cholesterol 124 mg/dl (140-200); Estimated Glomerular Filt Rate 84 ml/min (>60); GFR (African American) 101 ML/MIN (>60); Globulin 2.7 g/dL (1.3-3.2); Glucose 121 mg/dl (74-100); HDL Cholesterol 38 mg/dl (40-60); Potassium 3.2 mmoL/L (3.5-5.1); Sodium 138 mmol/L (136-145); Total Protein,Serum 7.3 g/dl (6.3-8.2); Triglycerides 140 mg/dl (30-150); VLDL Cholesterol 28 mg/dL (0-40)
[2023-07-21 11:11] LABS: 25-OH Vitamin D, Total 80.3 ng/mL (30-100)
[2023-07-21 11:52] LABS: Vitamin B12 > 1000 pg/mL (239-931)
[2023-07-21 19:50] LABS: Hemoglobin A1C 6.2 % (4.0-6.0)
== END 2023-07-21 23:59 ==
LOC: LAB 09:45
PROVIDERS: PCP Nurse Practitioner Family; Visit Provider Nurse Practitioner Family
DX: E78.5 Hyperlipidemia, unspecified (principal); I10 Essential (primary) hypertension; E53.8 Deficiency of other specified B group vitamins; D69.6 Thrombocytopenia, unspecified; E11.9 Type 2 diabetes mellitus without complications; Z79.84 Long term (current) use of oral hypoglycemic drugs; E66.9 Obesity, unspecified; Z68.33 Body mass index [BMI] 33.0-33.9, adult
CPT/HCPCS: 36415; 80053; 80061; 82306; 82607; 83036; 85025

== ENCOUNTER 2023-07-28 12:36 | Outpatient (CLI) | payer MEDICARE, SELFPAY ==
--- NOTE | 2023-07-28 12:36 | US_ITS ---
FINAL REPORT CLINICAL HISTORY: AAA COMPARISON: 12/09/2022 FINDINGS: ULTRASOUND ABDOMINAL AORTA Findings: Sagittal and transverse images with Doppler exam was performed of the aorta. Aorta measures up to 4 cm. Mild plaque disease is noted. Proximal iliac vessels are revealed that one of the iliac arteries measures 1.4 cm in size, which is somewhat dilated. This exam is unchanged since the prior exam of December 2022. Aorta is patent by Doppler exam without gross stenosis. IMPRESSION: Stable aortic aneurysm, up to 4 cm in size. 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 CTA could be helpful for further evaluation as clinically indicated. Reviewed, Interpreted and Dictated by Alexis Gamez MD Transcribed by Sandi Rebolledo Authenticated and [facility]
== END 2023-07-28 23:59 ==
PROVIDERS: PCP Nurse Practitioner Family; Visit Provider Physician Assistant
DX: E11.9 Type 2 diabetes mellitus without complications (principal); E78.5 Hyperlipidemia, unspecified; I25.10 Atherosclerotic heart disease of native coronary artery without angina pectoris; I51.9 Heart disease, unspecified; I71.40 Abdominal aortic aneurysm, without rupture, unspecified; I95.1 Orthostatic hypotension; R06.00 Dyspnea, unspecified; R94.31 Abnormal electrocardiogram [ECG] [EKG]; Z72.0 Tobacco use; Z95.1 Presence of aortocoronary bypass graft; Z13.6 Encounter for screening for cardiovascular disorders; Z79.84 Long term (current) use of oral hypoglycemic drugs; Z79.899 Other long term (current) drug therapy
CPT/HCPCS: 76705

== ENCOUNTER 2023-08-05 08:10 | Outpatient (CLI) | payer MEDICARE, SELFPAY ==
--- NOTE | 2023-08-05 08:12 | MR_ITS ---
FINAL REPORT TECHNIQUE: Multiplanar and multisequence imaging of the brain was obtained before and after contrast injection. CLINICAL HISTORY: new imbal, near falls, dizziness, worsening tremor COMPARISON: None FINDINGS: There is mild global cerebral atrophy with associated ex vacuo dilatation of the ventricles. There is no mass effect or midline shift. Small foci of periventricular and subcortical white matter are nonspecific. No hydrocephalus. The cerebellum and brainstem have a normal appearance. There are no areas of restricted diffusion on diffusion weighted images to suggest acute infarct. Soft tissues are without acute abnormality. Post contrast images reveal no pathologic contrast enhancement. IMPRESSION: No acute intracranial abnormality and no pathologic contrast enhancement. Mild periventricular and subcortical T2 abnormality, likely related to changes of chronic small vessel ischemia. Reviewed, Interpreted and Dictated by Kiki Ramirez MD Transcribed by Sandi Rebolledo Authenticated and [facility]
--- NOTE | 2023-08-05 08:12 | MR_ITS ---
FINAL REPORT TECHNIQUE: Imaging of the intracerebral vasculature was obtained without intravenous contrast using [id number] imaging. CLINICAL HISTORY: new imbal, dizziness, worsening tremor COMPARISON: None FINDINGS: Flow related signal intensity within the intracerebral vasculature is preserved. There is no evidence of aneurysm, significant stenosis or AVM. IMPRESSION: Unremarkable MR angiogram of the brain without contrast. Reviewed, Interpreted and Dictated by Kiki Ramirez MD Transcribed by Sandi Rebolledo Authenticated and . [facility]
[2023-08-05] MEDS: GADOTERIDOL INJ 17ML SYRINGE 22 ML IV (10:13)
[2023-08-05] MEDS: SODIUM CHLORIDE 0.9% 10ML SYR (RAD ONLY) 10 ML IV (10:13)
--- NOTE | 2023-08-05 10:30 | CA_ITS ---
FINAL REPORT TECHNIQUE: Rinaldi scale, color and spectral doppler images of the bilateral carotid arteries were obtained. CLINICAL HISTORY: BRIGIDA,HTN,TREMORS,DIZZINESS COMPARISON: 11/10/2021 FINDINGS: Peak systolic velocity in the right internal carotid artery is 141 cm/sec. The internal carotid to common carotid artery ratio is 2.1. This is equivalent to 50 to 69% stenosis of the right carotid artery, with mild to moderate plaque. The right vertebral artery is normal in direction. Peak systolic velocity in the left internal carotid artery is 104 cm/sec. The internal carotid to common carotid artery ratio is 1.94. There is mild to moderate plaque, with less than 50% diameter stenosis. The left vertebral artery is normal in direction. IMPRESSION: Less than 50% stenosis left carotid artery. Mild to moderate plaque is present. 50 to 69% stenosis of the right carotid artery, with mild to moderate plaque. Antegrade flow is present in the vertebral arteries bilaterally. Reviewed, Interpreted and Dictated by Kiki Ramirez MD Transcribed by Sandi Rebolledo Authenticated and . [facility]
== END 2023-08-05 23:59 ==
PROVIDERS: PCP Nurse Practitioner Family; Visit Provider Nurse Practitioner Family
DX: D69.6 Thrombocytopenia, unspecified (principal); I65.23 Occlusion and stenosis of bilateral carotid arteries; R25.1 Tremor, unspecified; R26.89 Other abnormalities of gait and mobility; R42 Dizziness and giddiness; Z86.79 Personal history of other diseases of the circulatory system; E78.5 Hyperlipidemia, unspecified
CPT/HCPCS: 70544; 70553; 93880; A9576

== ENCOUNTER 2023-11-29 07:46 | Outpatient (CLI) | payer MEDICARE, SELFPAY ==
--- NOTE | 2023-11-29 07:51 | US_ITS ---
FINAL REPORT TECHNIQUE: Multiple transverse and longitudinal images CLINICAL HISTORY: ELEVATED LIVER ENZYMES COMPARISON: None FINDINGS: The gallbladder shows no wall thickening, distention or stone disease. No biliary ductal dilatation is appreciated. No fluid collections are seen. Limited portions of the right liver are unremarkable. Limited portions of the right kidney show a small 2 cm hypoechoic cyst in the upper pole of the right kidney. The pancreas is not well-visualized secondary to overlying bowel gas. IMPRESSION: 1. No evidence of cholelithiasis 2. No evidence of biliary obstruction Reviewed, Interpreted and Dictated by Josh Key MD Transcribed by Sandi Rebolledo Authenticated and [facility]
== END 2023-11-29 23:59 | disposition home or self-care (01) ==
LOC: RAD 07:47
PROVIDERS: PCP Internal Medicine Adolescent Medicine; Visit Provider Nurse Practitioner Family
DX: R74.8 Abnormal levels of other serum enzymes (principal)
CPT/HCPCS: 76705

== ENCOUNTER 2023-12-21 09:10 | Outpatient (CLI) | payer MEDICARE, SELFPAY ==
[2023-12-21 09:50] LABS: Basophils % 0.9 % (0.1-2.0); Eosinophils # 0.1 K/mm3 (0.0-0.4); Hematocrit 43.9 % (42.0-52.0); Hemoglobin 14.7 g/dL (14.1-18.0); Lymphocytes # 1.4 K/mm3 (0.7-4.5); Lymphocytes % 28.5 % (10-50); Mean Corpuscular HGB Conc 33.4 g/dL (31.8-35.4); Mean Corpuscular Volume 95.7 fl (80-94); Mean Platelet Volume 8.5 fl (7.4-10.4); Monocytes # 0.4 K/mm3 (0.1-1.0); Monocytes % 7.5 % (1.7-9.3); Neutrophils % 61.2 % (37.0-80.0); Platelet Count 117 K/mm3 (142-424); Red Blood Count 4.59 M/mm3 (4.60-6.20); Red Cell Distribution Width 14.3 % (11.5-17.5)
[2023-12-21 10:27] LABS: Alanine Aminotransferase 92 U/L (12-78); Alkaline Phosphatase 101 U/L (38-126); Aspartate Amino Transferase 68 U/L (17-59); Bilirubin,Indirect 0.8 mg/dL (0.0-0.9); Bilirubin,Total 0.8 mg/dl (0.2-1.3); Bilirubin,Unconjugated 0.9 mg/dL (0.0-1.1); Blood Urea Nitrogen 10 mg/dl (9-20); Calcium 9.2 mg/dl (8.4-10.2); Carbon Dioxide 22 mmol/L (22.0-30.0); Chloride 108 mmol/L (98-107); Cholesterol 132 mg/dl (140-200); Estimated Glomerular Filt Rate 112 ml/min (>60); GFR (African American) 135 ML/MIN (>60); Glucose 135 mg/dl (74-100); HDL Cholesterol 44 mg/dl (40-60); Magnesium 1.7 mg/dl (1.6-2.3); Sodium 137 mmol/L (136-145); Total Protein,Serum 6.7 g/dl (6.3-8.2); Triglycerides 252 mg/dl (30-150); VLDL Cholesterol 50 mg/dL (0-40)
[2023-12-21 10:28] LABS: Anion Gap 10.4 mEq/L (5-15); Potassium 3.4 mmoL/L (3.5-5.1)
[2023-12-21 10:38] LABS: Direct LDL Cholesterol 56.13 mg/dL (100-129)
[2023-12-21 10:44] LABS: Free T4 (Free Thyroxine) 0.83 ng/dl (0.78-2.19)
[2023-12-21 10:58] LABS: Thyroid Stimulating Hormone 1.06 uIU/mL (0.465-4.68)
== END 2023-12-21 23:59 | disposition home or self-care (01) ==
PROVIDERS: PCP Internal Medicine Adolescent Medicine; Visit Provider Physician Assistant
DX: E11.69 Type 2 diabetes mellitus with other specified complication (principal); I25.810 Atherosclerosis of coronary artery bypass graft(s) without angina pectoris; R00.2 Palpitations; Z79.899 Other long term (current) drug therapy
CPT/HCPCS: 36415; 80048; 80061; 80076; 83735; 84439; 84443; 85025

== ENCOUNTER 2024-01-05 08:35 | Outpatient (CLI) | payer MEDICARE, SELFPAY ==
[2024-01-05 09:40] LABS: Anion Gap 11.3 mEq/L (5-15); Blood Urea Nitrogen 12 mg/dl (9-20); Calcium 8.9 mg/dl (8.4-10.2); Carbon Dioxide 27 mmol/L (22.0-30.0); Chloride 103 mmol/L (98-107); Estimated Glomerular Filt Rate 96 ml/min (>60); GFR (African American) 116 ML/MIN (>60); Glucose 139 mg/dl (74-100); Magnesium 1.9 mg/dl (1.6-2.3); Potassium 3.3 mmoL/L (3.5-5.1); Sodium 138 mmol/L (136-145)
== END 2024-01-05 23:59 | disposition home or self-care (01) ==
LOC: LAB 08:36
PROVIDERS: PCP Nurse Practitioner Family; Visit Provider Nurse Practitioner
DX: E87.6 Hypokalemia (principal); E83.42 Hypomagnesemia
CPT/HCPCS: 36415; 80048; 83735

== ENCOUNTER 2024-03-22 09:04 | Outpatient (CLI) | payer MEDICARE, SELFPAY ==
--- NOTE | 2024-03-22 | CA_ITS ---
FINAL REPORT TECHNIQUE: Multiple transverse and longitudinal images were performed of the right femoral-popliteal deep venous system with augmentation and compression maneuvers. CLINICAL HISTORY: RIGHT ANKLE AND KNEE PAIN FINDINGS: Right lower extremity duplex ultrasound demonstrates normal flow in the deep venous system. There is no abnormal echogenicity to suggest thrombus. There is normal compression and augmentation. IMPRESSION: No evidence of right DVT. Reviewed, Interpreted and Dictated by Alexis Gamez MD Transcribed by Corine Ann Authenticated and [facility]
== END 2024-03-22 23:59 | disposition home or self-care (01) ==
LOC: RT 09:05
PROVIDERS: PCP Nurse Practitioner Family; Visit Provider Nurse Practitioner Family
DX: M79.604 Pain in right leg (principal); M79.89 Other specified soft tissue disorders
CPT/HCPCS: 93971

== ENCOUNTER 2024-06-27 07:12 | Outpatient (CLI) | payer MEDICARE, SELFPAY ==
--- NOTE | 2024-06-27 | CA_ITS ---
APPROVED REPORT Exam: Pharmacologic Technologist: Ana Hernadez Ht: 5 ft 11 in Wt: 240 lbs BSA: 2.28 m2 HR: 65 bpm BP: 132/72 mmHg Medical History Cardiac Risk Factors: HTN, Hyperlipidemia, Diabetes (non-insulin), Smoking Stress Test Details HR Resting HR: 65 bpm Max Heart Rate (APMHR): 150 bpm Target HR (85% APMHR): 128 bpm Recovery HR: 83 bpm BP Resting BP: 132.0/72.0 mmHg Recovery BP: 134.0/66.0 mmHg ECG Stress ECG Conclusion During lexiscan pt experinced mild SOA and nausea. PVCs noted. No arrhythmias noted. Electronically signed by : Sienna Nova MD 06/27/2024 10:15:29
--- NOTE | 2024-06-27 07:13 | NM_ITS ---
APPROVED REPORT Exam: Nuclear Stress Test Indication: cad, cabg, htn, diabetes, hyperlipidemia, tob use, fm hx, c.p., sob Patient Location: Outpatient Stress Tech: Ana Hernadez HI Tech:ASCENCION Schreiber RT (R)(N)(M) Ht: 5 ft 10 in Wt: 241 lbs HR: 65 bpm BP: 132/72 mmHg BSA: 2.26 m2 TID: 1.20 BMI: 34.5 History: cad, cabg, htn, diabetes, hyperlipidemia, tob use, fm hx, c.p., sob Procedure: Patient received 0.4 mg of intravenous Lexiscan, resting heart rate 65 bpm, resting blood pressure 132/72 mmHg, with Lexiscan maximum heart rate achieved was 87 bpm which is % of the maximum predicted heart rate and blood pressure was 134/67 mmHg. With Lexiscan, patient denied any complaint of chest pain. Cardiac Stress and Resting SPECT Images: Cardiac Stress and Resting SPECT images were obtained using technetium 99m Myoview 31.2 mCi stress and 10.57 mCi at rest. Resting and stress imaging in supine and prone positions demonstrate a medium sized, moderate, predominantly fixed perfusion defect in the inferior and inferolateral LV xavier. There is a region of reversibility towards the inferior apical region. There is also borderline increase in transient ischemic dilation ratio (TID 1.20), suggestive of possible multivessel disease or balanced ischemia. Gated imaging demonstrates mildly reduced LV systolic function. There is moderate hypokinesis of the basal to mid inferior LV wall. LVEF is calculated at 46%. Conclusion: Medium sized, moderate, predominantly fixed perfusion defect in the inferior and inferolateral LV xavier. There is a region of reversibility towards the inferior apical region. Findings are suggestive of partial reversible ischemia. There is also borderline increase in transient ischemic dilation ratio (TID 1.20), suggestive of possible multivessel disease or balanced ischemia. Gated imaging demonstrates mildly reduced LV systolic function. There is moderate hypokinesis of the basal to mid inferior LV wall. LVEF is calculated at 46%. Electronically signed by : Sienna Nova MD 06/27/2024 15:55:51
--- NOTE | 2024-06-27 07:13 | CA_ITS ---
FINAL REPORT TECHNIQUE: Color Doppler, duplex Doppler and stack scale sonography of the bilateral neck arterial vasculature was performed. Velocities were measured in the carotid arteries. Stenosis evaluation based on the validated velocity criteria. CLINICAL HISTORY: BRIGIDA,HTN,DIZZINESS COMPARISON: None FINDINGS: The peak systolic velocity of the right common carotid artery is 75 cm/s. The peak systolic velocity of the right internal carotid artery is 152 cm/s and end diastolic velocity 40 cm/s. The ICA/CCA ratio is 2.22. A mild to moderate amount of plaque is present. The right external carotid artery is patent. The right vertebral artery is patent with antegrade flow. The peak systolic velocity of the left common carotid artery is 91 cm/s. The peak systolic velocity of the left internal carotid artery is 82 cm/s and end diastolic velocity 23 cm/s. The ICA/CCA ratio is 1.40. A mild to moderate amount of plaque is present. The left external carotid artery is patent.The left vertebral artery is patent with antegrade flow. IMPRESSION: Less than 50% stenosis bilaterally. Bilateral patent vertebral arteries with antegrade flow. If indicated, CTA or MRA could further evaluate. Reviewed, Interpreted and Dictated by Alexis Gamez MD Transcribed by Annamarie Leonard Authenticated and [facility]
--- NOTE | 2024-06-27 07:13 | US_ITS ---
FINAL REPORT CLINICAL HISTORY: AAA, Iliac artery aneurysm COMPARISON: 07/30/2023 abdominal aortic aneurysm screening 11/29/2023 liver ultrasound FINDINGS: Sonographic images were obtained of the abdominal aorta. The abdominal aorta measures up to 4 cm in greatest dimensions. The common iliac artery aneurysm noted on the prior examination of 07/28/2023 is again noted. On today's examination this measures 1.8 cm in greatest dimension. There are also multiple liver masses measuring up to 10 cm in size, that are new since the prior ultrasound of 11/29/2023. These may represent metastases, and CT examination of the abdomen and pelvis is suggested for further evaluation. IMPRESSION: Stable abdominal aortic aneurysm as described. Multiple liver masses measuring up to 10 cm in size, new since the prior ultrasound of 11/29/2023. These may represent metastases, and CT examination of the abdomen and pelvis is suggested for further evaluation. Reviewed, Interpreted and Dictated by Alexis Gamez MD Transcribed by Sandi Rebolledo Authenticated and [facility]
[2024-06-27] MEDS: SODIUM CHLORIDE 0.9% 10ML SYR (RAD ONLY) 10 ML IV ×2 (07:50→09:30)
[2024-06-27] MEDS: REGADENOSON 0.4MG/5ML SYRINGE 0.4 MG IV (09:30)
[2024-06-27] MEDS: ISOTOPE MYOVIEW (PER STUDY) 1 DOSE IV (10:38)
[2024-06-27 12:36] LABS: Basophils % 0.3 % (0.1-2.0); Eosinophils % 0.1 % (0.1-12.0); Hematocrit 39.3 % (42.0-52.0); Hemoglobin 12.7 g/dL (14.1-18.0); Lymphocytes # 1.4 K/mm3 (0.7-4.5); Lymphocytes % 21.3 % (10-50); Mean Corpuscular HGB Conc 32.3 g/dL (31.8-35.4); Mean Corpuscular Hemoglobin 29.3 pg (27.0-31.2); Mean Corpuscular Volume 90.8 fl (80-94); Mean Platelet Volume 10.2 fl (7.4-10.4); Monocytes # 0.6 K/mm3 (0.1-1.0); Monocytes % 9.3 % (1.7-9.3); Neutrophils # 4.6 K/mm3 (1.8-7.8); Neutrophils % 68.7 % (37.0-80.0); Platelet Count 166 K/mm3 (142-424); Red Blood Count 4.33 M/mm3 (4.60-6.20); Red Cell Distribution Width 13.6 % (11.5-17.5); White Blood Count 6.7 K/mm3 (4.8-10.8)
[2024-06-27 13:00] LABS: Albumin Level 3.9 g/dl (3.5-5.0); Chloride 99 mmol/L (98-107); Sodium 132 mmol/L (136-145)
[2024-06-27 13:01] LABS: Potassium 3.6 mmoL/L (3.5-5.1)
[2024-06-27 13:03] LABS: Alanine Aminotransferase 89 U/L (12-78); Anion Gap 10.6 mEq/L (5-15); Aspartate Amino Transferase 149 U/L (17-59); Bilirubin,Unconjugated 0.7 mg/dL (0.0-1.1); Blood Urea Nitrogen 9 mg/dl (9-20); Carbon Dioxide 26 mmol/L (22.0-30.0); Cholesterol 88 mg/dl (140-200); Estimated Glomerular Filt Rate 111 ml/min (>60); GFR (African American) 135 ML/MIN (>60); Total Protein,Serum 6.7 g/dl (6.3-8.2); Triglycerides 132 mg/dl (30-150); VLDL Cholesterol 26 mg/dL (0-40)
[2024-06-27 13:04] LABS: Alkaline Phosphatase 315 U/L (38-126); Bilirubin,Direct 0.3 mg/dl (0.0-0.4); Bilirubin,Indirect 0.7 mg/dL (0.0-0.9); Calcium 9.2 mg/dl (8.4-10.2); Chol/HDL Ratio 3.4 (1-3.5); Glucose 107 mg/dl (74-100); HDL Cholesterol 26 mg/dl (40-60); Magnesium 1.7 mg/dl (1.6-2.3)
[2024-06-27 13:17] LABS: Direct LDL Cholesterol 38.46 mg/dL (100-129)
[2024-06-27 13:19] LABS: Free T4 (Free Thyroxine) 1.26 ng/dl (0.78-2.19)
[2024-06-27 13:39] LABS: Thyroid Stimulating Hormone 1.84 uIU/mL (0.465-4.68)
== END 2024-06-27 23:59 | disposition home or self-care (01) ==
PROVIDERS: PCP Nurse Practitioner Family; Visit Provider Physician Assistant
DX: I20.89 Other forms of angina pectoris (principal); Z95.1 Presence of aortocoronary bypass graft; R94.31 Abnormal electrocardiogram [ECG] [EKG]; I25.810 Atherosclerosis of coronary artery bypass graft(s) without angina pectoris; I65.23 Occlusion and stenosis of bilateral carotid arteries; R93.1 Abnormal findings on diagnostic imaging of heart and coronary circulation; R16.0 Hepatomegaly, not elsewhere classified; I72.3 Aneurysm of iliac artery; I71.40 Abdominal aortic aneurysm, without rupture, unspecified; E11.69 Type 2 diabetes mellitus with other specified complication; Z72.0 Tobacco use; G47.33 Obstructive sleep apnea (adult) (pediatric)
CPT/HCPCS: 36415; 76705; 78452; 80048; 80061; 80076; 83735; 84439; 84443; 85025; 93017; 93018; 93880; A9502; J2785

== ENCOUNTER 2024-07-03 08:30 | Day surgery (SDC) | payer MEDICARE, SELFPAY ==
[2024-07-03] VITALS (13 sets, daily range): BP systolic 109–147; BP diastolic 55–81; PULSE 71–92; RESP 16–20; TEMP 36.7; O2SAT 94–99; BMI 33.2
--- NOTE | 2024-07-03 07:42 | IR_ITS ---
APPROVED REPORT Patient Location: Outpatient PROCEDURES Selective coronary angiogram Selective engagement of the left internal mammary artery to the chest wall Selective engagement of the saphenous vein graft to the obtuse marginal artery Selective engagement of the saphenous vein graft to the right coronary Drug-eluting stent deployment to the ostial and proximal left main artery Drug-eluting stent deployment to the mid LAD INDICATION High risk abnormal Myoview, History of coronary bypass surgery, Coronary artery disease, Informed consent was obtained prior to the procedure. COMPLICATIONS none Estimated Blood Loss: less than 10ml TECHNIQUE One percent lidocaine used to anesthetize the right groin. The right femoral artery was accessed via the Seldinger technique and a 5 Cameroonian sheath was placed in the right femoral artery. A JL 4 JR4 catheter were used to perform diagnostic coronary angiography. The 5 Cameroonian sheath was exchanged for a 45 cm 6 Cameroonian sheath. A SPARROW guide catheter was used to selectively intubate the left internal mammary artery while a multipurpose catheter was used to cannulate the saphenous vein graft to the right coronary artery. At the end of the diagnostic angiogram therapeutic heparin was administered and an EBU 3.5 guide catheter was placed in left main artery followed by Choice PT extra-support wire placed distally into the LAD. A 2.5 x 26 mm Tahir frontier stent was placed in the mid LAD at 18 alicia reducing the stenosis to 0%. An additional 2.75 x 12 mm Tahir frontier stent was placed proximal to the for stent yet still overlapping and deployed at 20 alicia to reduce an additional stenosis. A 4 mm x 12 mm Tahir frontier stent was deployed at 24 alicia in the left main artery reducing the stenosis. A 5 mm x 8 mm noncompliant balloon was deployed at 20 alicia to post dilate. I still was not happy with the angiograph results therefore a 5 mm x 12 mm Tahir frontier stent was placed in the left coronary cusp extending into the ostium and proximal portion of the left main artery overlapping the 4 mm stent and then deployed at 20 alicia. Excellent angiograph results were obtained at the end of the procedure the apparatus was removed the groin is reprepped closure change sheath was removed good hemostasis was achieved using Perclose device patient was transferred to the postop holding in stable condition ANGIOGRAPHIC RESULTS The left main artery Has an ostial 40% stenosis and a mid vessel eccentric 50% stenosis The left anterior descending artery Has proximal 30 and 40% stenosis with mid vessel calcified 90% stenosis with additional mid vessel 30% stenosis. A large first diagonal artery is widely patent The circumflex artery Proximally occluded The right coronary artery Dominant and ostially occluded The MELGAR ventriculogram reveals Not performed The left ventricular end-diastolic pressure Not measured SPARROW graft is widely patent to the chest wall Saphenous to the obtuse marginal artery is widely patent Saphenous to RCA is ostially occluded IMPRESSION Coronary artery disease as described above Successful stenting of the ostial proximal left main artery severe disease reduced to less than 10% with 2 contiguous drug-eluting stents Successful stenting of the mid LAD severe disease reduced to 0% with 2 contiguous drug-eluting stents PLAN 1. Effient and aspirin 2. LDL goal less than 55 to be achieved with high intensity statin 3. Avoidance of tobacco products 4. Cardiac rehabilitation 5. Medical management for reduced ejection fraction Electronically signed by : Alejandro Fajardo MD 07/03/2024 12:38:39
[2024-07-03 09:19] LABS: Basophils % 0.2 % (0.1-2.0); Eosinophils % 0.1 % (0.1-12.0); Hematocrit 41.4 % (42.0-52.0); Lymphocytes # 0.7 K/mm3 (0.7-4.5); Lymphocytes % 9.1 % (10-50); Mean Corpuscular HGB Conc 31.4 g/dL (31.8-35.4); Mean Corpuscular Hemoglobin 28.8 pg (27.0-31.2); Mean Corpuscular Volume 91.8 fl (80-94); Mean Platelet Volume 11.1 fl (7.4-10.4); Monocytes # 0.6 K/mm3 (0.1-1.0); Monocytes % 6.9 % (1.7-9.3); Neutrophils # 6.7 K/mm3 (1.8-7.8); Neutrophils % 83.3 % (37.0-80.0); Platelet Count 199 K/mm3 (142-424); Red Blood Count 4.51 M/mm3 (4.60-6.20); Red Cell Distribution Width 13.6 % (11.5-17.5); White Blood Count 8.1 K/mm3 (4.8-10.8)
[2024-07-03 09:24] LABS: Chloride 95 mmol/L (98-107); Potassium 3.2 mmoL/L (3.5-5.1); Sodium 135 mmol/L (136-145)
[2024-07-03 09:27] LABS: Blood Urea Nitrogen 15 mg/dl (9-20); Creatinine Clearance Estimated 105 mL/min (50-200); Estimated Glomerular Filt Rate 96 ml/min (>60); GFR (African American) 116 ML/MIN (>60)
[2024-07-03 09:28] LABS: Anion Gap 22.2 mEq/L (5-15); Calcium 8.7 mg/dl (8.4-10.2); Carbon Dioxide 21 mmol/L (22.0-30.0); Glucose 143 mg/dl (74-100)
[2024-07-03] MEDS: LIDOCAINE 1% 10ML MDV 20 ML IJ (10:01)
[2024-07-03] MEDS: HEPARIN 1,000 UNITS/500ML NS (CATH LAB) 3000 UNIT IV (10:02)
[2024-07-03] MEDS: diphenhydrAMINE 50MG/ML VIAL 50 MG IV (10:02)
[2024-07-03] MEDS: 0.9 % SODIUM CHLORIDE 500 ML 25 ML IV (10:02)
[2024-07-03] MEDS: HEPARIN 1,000 UNITS/ML 10ML VIAL (CATH LAB) 10000 UNIT IV ×2 (10:25→11:04)
[2024-07-03] MEDS: FENTANYL 100MCG/2ML VIAL 50 MCG IV (11:02)
[2024-07-03] MEDS: MIDAZOLAM HCL 1MG/ML 5ML VIAL 1 MG IV (11:02)
[2024-07-03] MEDS: PRASUGREL 10MG TAB 60 MG PO (11:12)
[2024-07-03] MEDS: IOPAMIDOL-370 (76%);100ML BOTTLE 210 ML IV (15:50)
== END 2024-07-03 14:50 | disposition home or self-care (01) ==
PROVIDERS: PCP Nurse Practitioner Family; Visit Provider Internal Medicine
DX: I25.118 Atherosclerotic heart disease of native coronary artery with other forms of angina pectoris (principal); I71.40 Abdominal aortic aneurysm, without rupture, unspecified; I72.3 Aneurysm of iliac artery; I77.1 Stricture of artery; I65.23 Occlusion and stenosis of bilateral carotid arteries; I51.9 Heart disease, unspecified; E78.5 Hyperlipidemia, unspecified; I25.810 Atherosclerosis of coronary artery bypass graft(s) without angina pectoris; R94.31 Abnormal electrocardiogram [ECG] [EKG]; E11.69 Type 2 diabetes mellitus with other specified complication; F17.210 Nicotine dependence, cigarettes, uncomplicated; R16.0 Hepatomegaly, not elsewhere classified; E11.9 Type 2 diabetes mellitus without complications; Z79.84 Long term (current) use of oral hypoglycemic drugs; R93.1 Abnormal findings on diagnostic imaging of heart and coronary circulation; Z79.899 Other long term (current) drug therapy; Z95.5 Presence of coronary angioplasty implant and graft; Z95.1 Presence of aortocoronary bypass graft; G47.33 Obstructive sleep apnea (adult) (pediatric); I10 Essential (primary) hypertension
CPT/HCPCS: 80048; 85025; 92928; 93455; 99152; 99153; C1725; C1760; C1769; C1874; C1894; C9600; J1200; J1644; J2250; J3010; Q9967

== ENCOUNTER 2024-07-04 12:51 | Outpatient (CLI) | payer MEDICARE, SELFPAY ==
[2024-07-04 13:15] LABS: Basophils % 0.2 % (0.1-2.0); Eosinophils % 0.2 % (0.1-12.0); Hematocrit 36.5 % (42.0-52.0); Hemoglobin 11.7 g/dL (14.1-18.0); Lymphocytes # 1.1 K/mm3 (0.7-4.5); Lymphocytes % 17.6 % (10-50); Mean Corpuscular HGB Conc 32.1 g/dL (31.8-35.4); Mean Corpuscular Hemoglobin 28.8 pg (27.0-31.2); Mean Corpuscular Volume 89.9 fl (80-94); Mean Platelet Volume 10.5 fl (7.4-10.4); Monocytes # 0.6 K/mm3 (0.1-1.0); Monocytes % 9.1 % (1.7-9.3); Neutrophils # 4.4 K/mm3 (1.8-7.8); Neutrophils % 72.6 % (37.0-80.0); Platelet Count 172 K/mm3 (142-424); Red Blood Count 4.06 M/mm3 (4.60-6.20); Red Cell Distribution Width 13.6 % (11.5-17.5); White Blood Count 6.1 K/mm3 (4.8-10.8)
[2024-07-04 15:02] LABS: Alanine Aminotransferase 245 U/L (12-78); Albumin Level 3.6 g/dl (3.5-5.0); Albumin/Globulin Ratio 1.3 (1.1-1.8); Alkaline Phosphatase 390 U/L (38-126); Anion Gap 15.1 mEq/L (5-15); Aspartate Amino Transferase 483 U/L (17-59); Bilirubin,Total 1.3 mg/dl (0.2-1.3); Blood Urea Nitrogen 11 mg/dl (9-20); Calcium 8.8 mg/dl (8.4-10.2); Carbon Dioxide 26 mmol/L (22.0-30.0); Chloride 98 mmol/L (98-107); Estimated Glomerular Filt Rate 83 ml/min (>60); GFR (African American) 101 ML/MIN (>60); Globulin 2.8 g/dL (1.3-3.2); Glucose 123 mg/dl (74-100); Potassium 4.1 mmoL/L (3.5-5.1); Sodium 135 mmol/L (136-145); Total Protein,Serum 6.4 g/dl (6.3-8.2)
[2024-07-05 08:14] LABS: AFP, Tumor Marker 19.1 ng/mL (0.0-8.4)
[2024-07-05 09:36] LABS: CEA 8.9 ng/mL (0.0-4.7)
[2024-07-07 02:18] LABS: ALT (SGPT) P5P 244 IU/L (0-55); AST (SGOT) P5P 447 IU/L (0-40); Alpha 2-Macroglobulins, Qn 229 mg/dL (110-276); Apolipoprotein A-1 60 mg/dL (101-178); Bilirubin, Total 0.8 mg/dL (0.0-1.2); Cholesterol, Total 76 mg/dL (100-199); Fibrosis Score 0.82 (0.00-0.21); GGT 529 IU/L (0-65); Glucose 128 mg/dL (70-99); Haptoglobin 441 mg/dL (32-363); Steatosis Score 0.95 (0.00-0.40); Triglycerides 138 mg/dL (0-149)
== END 2024-07-04 23:59 | disposition home or self-care (01) ==
LOC: LAB 12:52
PROVIDERS: Nurse Practitioner Family; PCP Nurse Practitioner Family; Visit Provider Internal Medicine
DX: R16.0 Hepatomegaly, not elsewhere classified (principal); R74.8 Abnormal levels of other serum enzymes; F10.10 Alcohol abuse, uncomplicated
CPT/HCPCS: 36415; 80053; 82105; 82378; 85025

== ENCOUNTER 2024-07-12 09:48 | Outpatient (CLI) | payer MEDICARE, SELFPAY ==
--- NOTE | 2024-07-12 09:49 | CT_ITS ---
FINAL REPORT TECHNIQUE: After the administration of oral and intravenous contrast, axial images were obtained through the abdomen and pelvis by computed tomography. The study was performed with techniques to keep radiation dose as low as reasonably achievable, (ALARA). Individual dose reduction techniques using automated exposure control or adjustment of mA and/or kV according to the patient's size were employed. CLINICAL HISTORY: new liver masses concern for mets COMPARISON: None FINDINGS: Abdomen: There is a noncalcified nodule in the lingula measuring 9 mm well-seen on image 16 of series 2. There is a multitude of low-attenuation peripherally enhancing masses in the liver. The largest is located in the mid right lobe measuring up to 7.4 x 5.1 cm. Many of the masses appear confluent. Findings are consistent with widespread hepatic metastatic disease. The spleen is normal in size. There are postoperative changes from prior gastric sleeve. The pancreas, adrenal glands, and kidneys are unremarkable. There is a benign-appearing cyst in the right kidney measuring 1.2 cm. The abdominal aorta measures up to 4.1 cm in diameter. Mural thrombus is seen within the lumen of the aneurysm. Enlarged nodes are seen in the region of the trevin hepatis measuring up to 2.8 cm in greatest dimension, well-seen on image 47 of series 2. There is low-attenuation within the central portion, concerning for necrosis. Pelvis: The appendix is not identified. The urinary bladder is unremarkable. On the sagittal images, there is indentation of the superior endplate of L2 and advanced changes of degenerative disc disease at L4-5 and L5-S1. IMPRESSION: Widespread hepatic metastatic disease with apparent necrotic portal adenopathy. No definite primary identified. Abdominal aortic aneurysm. Reviewed, Interpreted and Dictated by Alexis Gamez MD Transcribed by Annamarie Leonard Authenticated and [facility]
[2024-07-12] MEDS: IOPAMIDOL-370 (76%);100ML BOTTLE 75 ML IV (10:08)
[2024-07-12] MEDS: SODIUM CHLORIDE 0.9% 10ML SYR (RAD ONLY) 10 ML IV (10:08)
[2024-07-12] MEDS: BARIUM SULFATE(READI-CAT2);450ML BOTTLE 450 ML PO (10:08)
== END 2024-07-12 23:59 | disposition home or self-care (01) ==
LOC: RAD 09:49
PROVIDERS: PCP Nurse Practitioner Family; Visit Provider Nurse Practitioner Family
DX: R16.0 Hepatomegaly, not elsewhere classified (principal); R74.8 Abnormal levels of other serum enzymes
CPT/HCPCS: 36415; 74177; Q9967

== ENCOUNTER 2024-07-31 07:29 | Outpatient (CLI) | payer MEDICARE, SELFPAY ==
[2024-07-31] VITALS (12 sets, daily range): BP systolic 104–158; BP diastolic 50–84; PULSE 73–89; RESP 18; TEMP 36.1–37.1; O2SAT 95–99; BMI 32.4
--- NOTE | 2024-07-31 07:30 | CT_ITS ---
FINAL REPORT CLINICAL HISTORY: liver lesions likely mets w/o known primary site FINDINGS: CT GUIDED LIVER BIOPSY. HISTORY: Liver mass ATTENDING PHYSICIAN: Dr. Key PHYSICIAN ROBOT DESIGNER: Marques De Jesus PA-C PROCEDURE: After informed consent was obtained and a timeout was performed, the patient was prepped and draped in usual sterile fashion over the left upper anterior chest. Utilizing local anesthesia and sterile technique with a coaxial system, access to the lesion was obtained. 4 18-gauge core biopsy passes were made. Post biopsy films demonstrate no evident complications. The patient received mild procedural sedation. The patient tolerated the procedure well and left the department in good condition. IMPRESSION: Status post CT-guided biopsy of a liver mass. PROCEDURAL SEDATION: 2 mg of IV Versed and 50 mcg of Fentanyl were administered. Continuous vital sign monitoring was used. An RN was present during the sedation process. Overall sedation time was 30 minutes. Films reviewed , interpreted and dictated by Dr. Key. Transcribed by Marques De Jesus PA-C. Reviewed, Interpreted and Dictated by Josh Key MD Transcribed by SHABNAM Kaur Authenticated and [facility]
--- NOTE | 2024-07-31 07:38 | PC.NURSE ---
Reviewed Josh Alves's note from 07/10/24 stating that pt could hold ASA and Effient 6 weeks post stent placement (4 stents placed on 07/03/24). Spoke w/ Melissa Contreras in Radiology to determine if ok to proceed w/ liver bx while pt taking thinners. She called later stating that Suzan Guajardo instructed pt to hold thinners for procedure and that he has been of of them for 5 days. She stated that pt did not inform her that he had to continue per cardiology recommendations. Spoke w/ Chacha Elizabeth who instructed to f/u w/ cardiology upon their arrival. Spoke w/ Frankie Alves notifying him of the situation. He stated ok to proceed w/ biopsy and that pt should restart ASA and Effient JUAN FRANCISCO.
[2024-07-31 08:21] LABS: POC Glucose,Bedside 103 (70-110)
[2024-07-31 08:45] LABS: Basophils % 0.6 % (0.1-2.0); Eosinophils % 0.3 % (0.1-12.0); Hematocrit 38.7 % (42.0-52.0); Hemoglobin 12.3 g/dL (14.1-18.0); Lymphocytes # 0.8 K/mm3 (0.7-4.5); Mean Corpuscular HGB Conc 31.8 g/dL (31.8-35.4); Mean Corpuscular Hemoglobin 28.6 pg (27.0-31.2); Mean Platelet Volume 10.9 fl (7.4-10.4); Monocytes # 0.3 K/mm3 (0.1-1.0); Monocytes % 10.5 % (1.7-9.3); Platelet Count 146 K/mm3 (142-424); Red Cell Distribution Width 15.2 % (11.5-17.5); White Blood Count 3.2 K/mm3 (4.8-10.8)
[2024-07-31 08:59] LABS: Activated Partial Thrombo Time 26.9 seconds (22.5-28.5); INR 1.04 (0.9-1.1); Prothrombin Time 11.4 seconds (9.2-12.1)
== END 2024-07-31 23:59 | disposition home or self-care (01) ==
PROVIDERS: PCP Nurse Practitioner Family; Visit Provider Nurse Practitioner Family
DX: R16.0 Hepatomegaly, not elsewhere classified (principal); R74.8 Abnormal levels of other serum enzymes
CPT/HCPCS: 47000; 77012; 82962; 85025; 85610; 85730; J2250; J3010

== ENCOUNTER 2024-08-01 14:04 | Outpatient (CLI) | payer MEDICARE, SELFPAY ==
[2024-08-01 14:18] LABS: Basophils % 0.5 % (0.1-2.0); Eosinophils % 0.3 % (0.1-12.0); Hematocrit 40.6 % (42.0-52.0); Hemoglobin 12.6 g/dL (14.1-18.0); Lymphocytes # 1.2 K/mm3 (0.7-4.5); Lymphocytes % 16.1 % (10-50); Mean Corpuscular Hemoglobin 28.2 pg (27.0-31.2); Mean Corpuscular Volume 90.8 fl (80-94); Mean Platelet Volume 10.8 fl (7.4-10.4); Monocytes # 0.8 K/mm3 (0.1-1.0); Neutrophils # 5.6 K/mm3 (1.8-7.8); Neutrophils % 72.7 % (37.0-80.0); Platelet Count 215 K/mm3 (142-424); Red Blood Count 4.47 M/mm3 (4.60-6.20); Red Cell Distribution Width 15.2 % (11.5-17.5); White Blood Count 7.7 K/mm3 (4.8-10.8)
[2024-08-01 14:37] LABS: Albumin Level 3.8 g/dl (3.5-5.0); Chloride 103 mmol/L (98-107); Potassium 3.5 mmoL/L (3.5-5.1); Sodium 138 mmol/L (136-145)
[2024-08-01 14:40] LABS: Alanine Aminotransferase 62 U/L (12-78); Albumin/Globulin Ratio 1.2 (1.1-1.8); Alkaline Phosphatase 795 U/L (38-126); Anion Gap 16.5 mEq/L (5-15); Aspartate Amino Transferase 239 U/L (17-59); Bilirubin,Total 1.8 mg/dl (0.2-1.3); Blood Urea Nitrogen 10 mg/dl (9-20); Carbon Dioxide 22 mmol/L (22.0-30.0); Estimated Glomerular Filt Rate 83 ml/min (>60); GFR (African American) 101 ML/MIN (>60); Globulin 3.1 g/dL (1.3-3.2); Total Protein,Serum 6.9 g/dl (6.3-8.2)
[2024-08-01 14:41] LABS: Calcium 8.8 mg/dl (8.4-10.2); Glucose 110 mg/dl (74-100)
[2024-08-02 08:30] LABS: AFP, Tumor Marker 76.7 ng/mL (0.0-8.4); CEA 10.4 ng/mL (0.0-4.7)
== END 2024-08-01 23:59 | disposition home or self-care (01) ==
LOC: LAB 14:05
PROVIDERS: PCP Nurse Practitioner Family; Visit Provider Nurse Practitioner Family
DX: K70.30 Alcoholic cirrhosis of liver without ascites (principal)
CPT/HCPCS: 36415; 80053; 82105; 82378; 85025

== ENCOUNTER 2024-08-09 06:00 | Day surgery (SDC) | payer MEDICARE, SELFPAY ==
[2024-08-09 06:29] VITALS: BP 118/57; PULSE 67; RESP 17; TEMP 36.3; O2SAT 98
[2024-08-09 06:52] VITALS: BMI 31.8
[2024-08-09 07:02] LABS: POC Glucose,Bedside 127 (70-110)
--- NOTE | 2024-08-09 07:15 | EXP.ANES.CKL ---
[facility] Disclaimer: The information contained in this section may have been updated after the patient was seen, as this information can be updated by other users. Medical History Sleep apnea Anxiety History of gastroesophageal reflux (GERD) History of anemia Edema Liver cancer Colorectal cancer Abnormal nuclear cardiac imaging test Liver masses Atypical angina Iliac artery aneurysm Hypomagnesemia Hypokalemia On statin therapy Hypertension Orthostatic hypotension Mild diastolic dysfunction HLD (hyperlipidemia) Abdominal aortic aneurysm (AAA) Bilateral carotid artery stenosis Dyspnea TREV (obstructive sleep apnea) Tobacco user Diabetes mellitus Abnormal EKG CAD (coronary artery disease) Surgical History History of liver biopsy History of hernia repair History of coronary artery bypass graft History of cardiac cath Hx of CABG Family History Other Family history of diabetes mellitus type I Family history of heart disease Social History Smoking Status: Current every day smoker tobacco type: cigarettes packs per day: 1 second hand exposure: Yes alcohol intake: current alcohol intake frequency: a few times a month substance use type: denies use current occupational status: retired Travel in the last 8 weeks: Inside the [place] household members: none housing: house caffeine: No Have you lived/traveled outside [place] in past 30 days?: No Contact w/someone who lives/traveled outside US past 30 days?: No Exposure to someone with infectious disease in past 14 days?: No Do you have a fever (greater than 100.4 F or 38 C)?: No Have you tested positive for COVID-19: No Exposed to someone with COVID-19 in past 14 days?: No Do you have a sore throat?: No Do you have a cough?: No Do you have any weakness?: No Are you experiencing any nausea/vomitting?: No Do you have any diarrhea?: No Are you experiencing any unusual bleeding?: No Do you have any muscle aches/pain?: No Do you have any abdominal pain?: No Are you experiencing loss of taste or smell?: No [facility] Anesthesia Checklist Patient Identification Patient Identification: Arm Band Structural Data Admitted From: Inpatient Planned Operative Procedure/s: Colonoscopy Consent for Planned Operative Procedure(s) Verified: Yes Verified Documents: Surgical Consent and History and Physical NPO Status Verified Time NPO: 00:00 Additional verifications Anesthesia Reactions: No Hx Blood Transfusions: No Blood Transfusion Reaction: No Airway Assessment Mallampati Score:: Class II C-Spine Mobility Assessed: Yes TMJ Mobility Assessed: Yes Dentition: Good Dentition Neurological Assessment Level of Consciousness: Awake, Alert and Appropriate Anesthesia Plan Anesthesia Risk discussed: Yes Anesthesia Plan: Verified ASA Class: III Anesthesia Type: MAC
--- NOTE | 2024-08-09 07:36 | P.HP_ITS ---
History of Present Illness *Admission Date: 08/09/24 *Reason for visit:: Metastatic poorly differentiated adenocarcinoma with p robable colon primary *History of present illness: Mr. Joyner is a 69-year-old gentleman with multiple liver masses and biopsy showing poorly differentiated adenocarcinoma with with unknown primary who is here for diagnostic EGD and colonoscopy. The examination is deemed medically necessary for diagnostic EGD and colonoscopy. The patient has been seen, inter viewed and examined prior to the procedure by both myself and the anesthesia provider. [facility] Disclaimer: The information contained in this section may have been updated after the patient was seen, as this information can be updated by other users. Medical History (Updated 08/09/24 @ 07:42 by Loc Waters II, MD) Sleep apnea Anxiety History of gastroesophageal reflux (GERD) History of anemia Edema Liver cancer Colorectal cancer Abnormal nuclear cardiac imaging test Liver masses Atypical angina Iliac artery aneurysm Hypomagnesemia Hypokalemia On statin therapy Hypertension Orthostatic hypotension Mild diastolic dysfunction HLD (hyperlipidemia) Abdominal aortic aneurysm (AAA) Bilateral carotid artery stenosis Dyspnea TREV (obstructive sleep apnea) Tobacco user Diabetes mellitus Abnormal EKG CAD (coronary artery disease) Surgical History History of liver biopsy History of hernia repair History of coronary artery bypass graft History of cardiac cath Hx of CABG Family History Other Family history of diabetes mellitus type I Family history of heart disease Social History Smoking Status: Current every day smoker tobacco type: cigarettes packs per day: 1 second hand exposure: Yes alcohol intake: current alcohol intake frequency: a few times a month substance use type: denies use current occupational status: retired Travel in the last 8 weeks: Inside the [place] household members: none housing: house caffeine: No Have you lived/traveled outside [place] in past 30 days?: No Contact w/someone who lives/traveled outside [place] past 30 days?: No Exposure to someone with infectious disease in past 14 days?: No Do you have a fever (greater than 100.4 F or 38 C)?: No Have you tested positive for COVID-19: No Exposed to someone with COVID-19 in past 14 days?: No Do you have a sore throat?: No Do you have a cough?: No Do you have any weakness?: No Are you experiencing any nausea/vomitting?: No Do you have any diarrhea?: No Are you experiencing any unusual bleeding?: No Do you have any muscle aches/pain?: No Do you have any abdominal pain?: No Are you experiencing loss of taste or smell?: No Other Medical History Have you received the Flu Vaccine for this season: Yes Have you received the Pneumonia Vaccine: Yes Review of Systems Review of Systems Review of systems (narrative): Negative *Cardiovascular Comments: Negative *Gastrointestinal Comments: Negative *Genitourinary Comments: Negative *Musculoskeletal Comments: Negative *Neurologic Comments: Negative Meds Home Medications and Allergies Home Medications ?Medication ?Instructions ?Recorded ?Confirmed ?Type clonazepam 0.5 mg tablet 0.5 mg PO DAILY . 07/24/20 08/08/24 History [id number]-[id number]-[id number] 300 mcg-K 60 1 tab PO DAILY Supplement 07/24/20 08/08/24 History mcg-lycop 600 mcg-lutein 300 mcg tablet (Centrum Silver Men) omeprazole 40 mg capsule,delayed 40 mg PO DAILY stomach 07/24/20 08/08/24 History release venlafaxine 75 mg tablet 75 mg PO BID . 07/24/20 08/08/24 History trazodone 50 mg tablet 50 mg PO HS . 11/04/20 08/08/24 History aspirin 81 mg tablet,delayed 81 mg PO DAILY . 05/21/21 08/08/24 History release metformin 1,000 mg tablet 500 mg PO DAILY Diabetes 05/21/21 08/08/24 History hydrochlorothiazide 25 mg tablet 12.5 mg PO .M, W, F fulid 08/23/23 08/08/24 History potassium chloride 20 mEq 40 meq (2 x 20 mEq) PO DAILY PRN 01/06/24 08/08/24 Rx tablet,extended release hypokalemia #180 tabs topiramate 50 mg tablet 200 mg (4 x 50 mg) PO HS 90 days 04/05/24 08/08/24 Rx #360 tabs prasugrel HCl 10 mg tablet 10 mg PO DAILY #30 tabs 07/03/24 08/08/24 Rx (Effient) metoprolol succinate 25 mg 25 mg PO DAILY 90 days #90 tabs 07/10/24 08/08/24 Rx tablet,extended release 24 hr atorvastatin 80 mg tablet See Rx Instructions .Route 07/12/24 08/08/24 Rx .COMPLEX #90 tabs guaifenesin 100 mg/5 mL oral 200 mg PO Q4H PRN . 08/01/24 08/08/24 History liquid (Mucinex Fast-Max Chest Congestion) New Prescriptions to Start Prescriptions: Allergies Allergy/AdvReac Type Severity Reaction Status Date / Time furosemide (From Lasix) Allergy Mild Hives Verified 08/08/24 14:12 Exam Data for Last 24 hours Vital signs and Labs for Last 24 Hours: Temp Pulse Resp BP Pulse Ox O2 Del Method 97.4 F L 67 17 118/57 L 98 Room Air 08/09/24 06:29 08/09/24 06:29 08/09/24 06:29 08/09/24 06:29 08/09/24 06:29 08/09/24 06:29 Laboratory Results - last 24 hr 08/09/24 06:48: POC Glucose 127 H I & O for Last 24 hours: Intake & Output 08/06/24 08/07/24 08/08/24 08/09/24 23:59 23:59 23:59 23:59 Weight 222 lb *Routine HEENT Exam Head: Present normocephalic Eye: Present EOMI and PERRL ENT: Present mucous membranes moist *Routine Neck Exam Neck: Present supple *Routine Respiratory Exam Respiratory: Present CTA bilaterally *Routine Cardiovascular Exam Cardiovascular: Present RRR *Routine Abdominal Exam Abdominal: Present soft and normoactive bowel sounds; Absent tenderness *Routine Rectal Exam Rectal:: deferred *Routine Genitalia Exam Genitalia:: deferred *Routine Extremities Exam Extremities: Absent cyanosis, clubbing or edema *Routine Skin Exam Skin: Present warm; Absent rash *Routine Neurological Exam Neurological: Present alert and oriented X3 Assessment and Plan *Assessment and plan (1) Metastatic adenocarcinoma to liver with unknown primary site: Status: Acute Category: Medical Code(s): C78.7 - Secondary malignant neoplasm of liver and intrahepatic bile duct; C80.1 - Malignant (primary) neoplasm, unspecified (2) Abnormal weight loss: Status: Acute Category: Medical Code(s): R63.4 - Abnormal weight loss (3) LUQ pain: Status: Acute Category: Medical Code(s): R10.12 - Left upper quadrant pain (4) RUQ pain: Status: Acute Category: Medical Code(s): R10.11 - Right upper quadrant pain (5) Bloating: Status: Acute Category: Medical Code(s): R14.0 - Abdominal distension (gaseous) (6) Chronic GERD: Status: Acute Category: Medical Code(s): K21.9 - Gastro-esophageal reflux disease without esophagitis Plan A/P: 1. Metastatic adenocarcinoma to liver with unknown primary is the preprocedural diagnosis. The patient will be anesthetized/sedated using MAC sedation. The patient has been seen and examined. Cardiac and lung assessment prior to the examination is stable. Proceed with planned diagnostic EGD and colonoscopy
[2024-08-09 07:42] VITALS: O2SAT 100
--- NOTE | 2024-08-09 07:43 | P.PCN_ITS ---
[facility] Procedure Note Date: 08/09/24 Time: 07:49 Procedure Note:: Upper Endoscopy Procedure Report: Esophagogastroduodenoscopy with cold snare polypectomy Endoscopost: Loc Waters II, MD Referring Physician: BRISEYDA Espana Date of Procedure: August 09, 2024 Equipment: Olympus GIF 190 standard upper endoscope Sedation: MAC sedation Indications: Mr. Joyner is a 69-year-old gentleman with multiple liver masses. His ultrasound in November 2023 showed no abnormality of the liver. There was concern for metastatic disease. His CEA was elevated at 8.9. His alpha- fetoprotein was 9.1. The patient did undergo CT directed biopsy of one of the liver lesions and this showed metastatic poorly differentiated adenocarcinoma with unknown primary but possible colorectal primary. The patient has had a colonoscopy in 2021 with no colon polyps. He reports no prior cancer. He has never had an EGD. His liver chemistries are moderately elevated. The patient has had coronary stents placed and is on anticoagulation. He has lost 35 to 40 pounds with poor appetite. He has some bloating and upper abdominal discomfort in the right and left upper abdomen. He also has had some constipation. Procedure: Prior to the procedure, a history and physical exam was performed, and patient's medications and allergies were reviewed. The risks, benefits and alternatives of the sedation and procedure were discussed with the patient. All questions were answered and informed consent was obtained. The patient was brought to the procedure room. Patient identification and proposed procedure were verified by the physician and the nurse. The patient was placed in a left lateral decubitus position and the scope was passed under direct vision. Throughout the procedure, the patient's blood pressure, pulse, and oxygen saturations were monitored continuously. The upper GI endoscopy was accomplished without difficulty. The patient tolerated the procedure well. Findings: The scope was passed directly into the upper esophagus and advanced to the third portion of the duodenum. There was a 9 mm duodenal adenomatous polyp in the second portion of the duodenum that was removed via cold snare polypectomy. The remainder of the first portion and bulb were normal. The scope was withdrawn through a normal duodenal bulb and pylorus into the stomach. There was evidence of gastric sleeve anatomy with mild reactive gastropathy and a small hiatal hernia. There were no ulcerations or masses in the stomach. The scope was then withdrawn into the esophagus. There was no evidence of Arce's esophagus or reflux esophagitis the remainder of the esophageal mucosa was normal. Impression: 1. 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
--- NOTE | 2024-08-09 08:03 | P.PCN_ITS ---
[facility] Procedure Note Date: 08/09/24 Time: 08:03 Procedure Note:: Colonoscopy Procedure Report: Colonoscopy with cold snare polypectomy Endoscopist: Loc Waters II, MD Referring physician: BRISEYDA Espana Date of Procedure: August 09, 2024 Equipment: Olympus 190 variable stiffness pediatric colonoscope Sedation: MAC sedation Indication: Mr. Joyner is a 69-year-old gentleman with multiple liver masses. His ultrasound in November 2023 showed no abnormality of the liver. There was co ncern for metastatic disease. His CEA was elevated at 8.9. His alpha- fetoprotein was 9.1. The patient did undergo CT directed biopsy of one of the liver lesions and this showed metastatic poorly differentiated adenocarcinoma with unknown primary but possible colorectal primary. The patient has had a colonoscopy in 2021 with no colon polyps. He reports no prior cancer. He has never had an EGD. His liver chemistries are moderately elevated. The patient has had coronary stents placed and is on anticoagulation. He has lost 35 to 40 pounds with poor appetite. He has some bloating and upper abdominal discomfort in the right and left upper abdomen. He also has had some constipation. Procedure: Prior to the procedure, a history and physical exam was performed, and patient's medications and allergies were reviewed. The risks, benefits and alternatives of the sedation and procedure were discussed with the patient. All questions were answered and informed consent was obtained. The patient was brought to the procedure room. Patient identification and proposed procedure were verified by the physician and the nurse. The patient was placed in a left lateral decubitus position and the scope was passed under direct vision. Throughout the procedure, the patient's blood pressure, pulse, and oxygen saturations were monitored continuously. The colonoscopy was accomplished without difficulty. The patient tolerated the procedure well. Findings: On digital rectal examination there was normal rectal tone. There were no external hemorrhoids. The colonoscope was introduced through the anal canal to the rectum and advanced to the cecum. The ileocecal valve and appendiceal orifice were identified. The scope was advanced a short distance into the ileum which appeared grossly normal. The scope was then withdrawn into the colon. There were 5 colon polyps (ascending x 3 (3, 4 and 6 mm) and descending x 2 (5 and 6 mm)). These were all removed via cold snare polypectomy. The remaining cecum, ascending, transverse, descending, sigmoid and rectum were grossly normal. There were no other mucosal abnormalities identified. Upon retroflexion within the rectum there were grade 1-2 internal hemorrhoids. The preparation was excellent throughout with [place] Preparation Score of 9. The cecal time was 12 minutes. Impression: 1. Diminutive colonic polyps x 5 Plan: There was clearly no primary identified on upper or lower endoscopy. I am going to refer the patient to oncology (Dr. Shaji Vazquez) for further evaluation and consideration of therapeutic options.
[2024-08-09 08:08] VITALS: BP 107/57; PULSE 101; RESP 18; O2SAT 96
[2024-08-09 08:18] VITALS: BP 97/58; PULSE 110; RESP 18; O2SAT 100
[2024-08-09 08:28] VITALS: BP 106/73; PULSE 96; RESP 18; O2SAT 100
[2024-08-09 08:35] VITALS: BP 127/76; PULSE 90; RESP 16; O2SAT 100
== END 2024-08-09 08:40 | disposition home or self-care (01) ==
PROVIDERS: PCP Nurse Practitioner Family; Visit Provider Internal Medicine Gastroenterology
PROC: 0DJD8ZZ Inspection of Lower Intestinal Tract, Via Natural or Artificial Opening Endoscopic (ICD-10-PCS; CPT 45378; principal; 2024-08-09 07:00)
DX: K31.9 Disease of stomach and duodenum, unspecified (principal); K44.9 Diaphragmatic hernia without obstruction or gangrene; D13.2 Benign neoplasm of duodenum; K63.5 Polyp of colon; K64.8 Other hemorrhoids; C78.7 Secondary malignant neoplasm of liver and intrahepatic bile duct; C80.1 Malignant (primary) neoplasm, unspecified; R63.4 Abnormal weight loss; R10.12 Left upper quadrant pain; R10.11 Right upper quadrant pain; R14.0 Abdominal distension (gaseous); K21.9 Gastro-esophageal reflux disease without esophagitis; K59.00 Constipation, unspecified; E11.9 Type 2 diabetes mellitus without complications; Z79.84 Long term (current) use of oral hypoglycemic drugs
CPT/HCPCS: 43251; 45385; 82962

== ENCOUNTER 2024-08-13 07:56 | Emergency (ER) | payer MEDICARE, SELFPAY ==
[2024-08-13] VITALS (9 sets, daily range): BP systolic 112–134; BP diastolic 59–91; PULSE 93–107; RESP 16–18; TEMP 36.4–36.6; O2SAT 96–98; BMI 29.9
--- NOTE | 2024-08-13 08:00 | PC.NURSE ---
pt arrived to our facility covered in poop pt states he had and accident around 4:30 am and layed in it due to not having no water were line froze up and busted. charge nurse Claude and myself cleaned pt up placed him in a gown and new brief and was given a warm blanket
--- NOTE | 2024-08-13 08:01 | PC.NURSE ---
er at bedside
--- NOTE | 2024-08-13 08:07 | XR_ITS ---
FINAL REPORT CLINICAL HISTORY: Fall COMPARISON: None FINDINGS: SINGLE VIEW PELVIS: A single view of the pelvis was obtained. There is no acute fracture or dislocation. The femoral head has a normal smooth contour. There is mild hip joint space narrowing bilaterally. Soft tissues are unremarkable. IMPRESSION: No acute bony abnormality. Reviewed, Interpreted and Dictated by Alexis Gamez MD Transcribed by Mercedes Crow Authenticated and [facility]
--- NOTE | 2024-08-13 08:07 | XR_ITS ---
FINAL REPORT CLINICAL HISTORY: Fall COMPARISON: None FINDINGS: A single view of the chest was obtained. The film was obtained with the lordotic positioning. The heart is at the upper limits of normal in size. Multiple median sternotomy wires are noted. There is mild chronic scarring noted at the bases. There is no focal infiltrate or edema. There are no pleural effusions. There is no pneumothorax. There is no osseous abnormality. IMPRESSION: No acute cardiopulmonary process Reviewed, Interpreted and Dictated by Alexis Gamez MD Transcribed by Mrecedes Crow Authenticated and [facility]
--- NOTE | 2024-08-13 08:09 | ED_ITS ---
Discharge Plan Disposition Patient Disposition: Home, Self-Care Condition: Good Prescriptions Prescriptions: No Action aspirin 81 mg tablet,delayed release (DR/EC) 81 mg PO DAILY metformin 500 mg tablet 500 mg PO DAILY Centrum Silver Men 300-600-300 mcg tablet 1 tab PO DAILY clonazepam 0.5 mg tablet 0.5 mg PO DAILY omeprazole 40 mg capsule,delayed release(DR/EC) 40 mg PO DAILY venlafaxine 75 mg tablet 75 mg PO BID trazodone 50 mg tablet 50 mg PO HS metformin 1,000 mg tablet 500 mg PO DAILY hydrochlorothiazide 25 mg tablet 12.5 mg PO .M, W, F Rx Instructions: Take on TUE/TUE/TUE only metoprolol succinate 25 mg tablet extended release 24 hr 25 mg PO DAILY 90 Days Qty: 90 3RF guaifenesin [Mucinex Fast-Max Chest-Congest] 100 mg/5 mL liquid 200 mg PO Q4H PRN (Reason: .) potassium chloride 20 mEq tablet extended release 40 meq PO DAILY PRN (Reason: hypokalemia) Qty: 180 3RF topiramate 50 mg tablet 200 mg PO HS 90 Days Qty: 360 1RF atorvastatin 80 mg tablet See Rx Instructions .ROUTE .COMPLEX Qty: 90 3RF Dose Instruction: TAKE 1 TABLET EVERY DAY Rx Instructions: TAKE 1 TABLET EVERY DAY prasugrel HCl [Effient] 10 mg Tablet 10 mg PO DAILY Qty: 30 6RF Referrals Follow up/Referrals: Karli Murphy APRN [Primary Care Provider] - See instructions Activity Restrictions/Add. Instructions Additional Instructions/Restrictions: Follow-up with oncology team at on Tuesday as scheduled. If you develop any new or worsening symptoms, such as worsening abdominal pain, chest pain, or if you become concerned for your health for any reason, return to the emergency department for evaluation Clinical Impressions Clinical Impression: Fall, Generalized weakness Print Language Print Language: Maltese Discharge ED Provider: Frankie Dickson Adult HPI General Chief complaint: Weakness Stated complaint: Weakness Time Seen by Provider: 08/13/24 08:00 Mode of Arrival: EMS Source of Information: Patient Description of Symptoms (Recalled from ER Triage Doc. by RN): pt brought in by [facility] for weakness, states he has been weak since june after having coronary stents placed, states he fell this morning around 4:30am due to the weakness and was able to catch himself on a laundry hamper, denies loc, denies hitting head, denies any pain at this time, pt is covered in feces, states that is abnormal for him, he just couldn't make it to the bathroom in time, states he has no running water at this time, senior fire protection engineer is supposed to come today to fix busted pipes per pt, was recently diagnosed with liver cancer , saw oncologist here who told him there was nothing he could do, going to soon for MRI and second opinion History of Present Illness HPI narrative: Fernando Joyner is a 69y male with a past medical history of coronary stents on blood thinning medication (patient does not remember which one he takes), hypertension, diabetes mellitus, hyperlipidemia and diagnosis of metastatic liver cancer made of last week who presents to the emergency department after a fall. Patient states that he has been feeling progressively weak with decreased appetite for several weeks. He reports being diagnosed with metastatic liver cancer last week and is going to in 1 week for MRI and a second opinion as he was told that there is nothing that they can do to treat him. He states that this morning, he had gotten up out of bed and walked into a laundry basket, causing him to fall forward into the laundry. He was unable to get up due to weakness. He notes that he lives with another individual who was unable to help him get up as well, so 911 was called. He denies any head trauma, chest pain, palpitations, dizziness, lightheadedness or shortness of breath. He reports chronic right upper quadrant abdominal pain that is unchanged from his baseline. Related Data Home Medications ?Medication ?Instructions ?Recorded ?Confirmed clonazepam 0.5 mg tablet 0.5 mg PO DAILY . 07/24/20 08/13/24 [id number] 300 mcg-K 60 1 tab PO DAILY Supplement 07/24/20 08/13/24 mcg-lycop 600 mcg-lutein 300 mcg tablet (Centrum Silver Men) omeprazole 40 mg capsule,delayed 40 mg PO DAILY stomach 07/24/20 08/13/24 release venlafaxine 75 mg tablet 75 mg PO BID . 07/24/20 08/13/24 trazodone 50 mg tablet 50 mg PO HS . 11/04/20 08/13/24 aspirin 81 mg tablet,delayed 81 mg PO DAILY . 05/21/21 08/13/24 release metformin 1,000 mg tablet 500 mg PO DAILY Diabetes 05/21/21 08/13/24 hydrochlorothiazide 25 mg tablet 12.5 mg PO .M, W, F fulid 08/23/23 08/13/24 guaifenesin 100 mg/5 mL oral 200 mg PO Q4H PRN . 08/01/24 08/13/24 liquid (Mucinex Fast-Max Chest Congestion) metformin 500 mg tablet 500 mg PO DAILY 08/09/24 08/13/24 Previous Rx's ?Medication ?Instructions ?Recorded potassium chloride 20 mEq 40 meq (2 x 20 mEq) PO DAILY PRN 01/06/24 tablet,extended release hypokalemia #180 tabs topiramate 50 mg tablet 200 mg (4 x 50 mg) PO HS 90 days 04/05/24 #360 tabs prasugrel HCl 10 mg tablet 10 mg PO DAILY #30 tabs 07/03/24 (Effient) metoprolol succinate 25 mg 25 mg PO DAILY 90 days #90 tabs 07/10/24 tablet,extended release 24 hr atorvastatin 80 mg tablet See Rx Instructions .Route 07/12/24 .COMPLEX #90 tabs Allergies Allergy/AdvReac Type Severity Reaction Status Date / Time furosemide (From Lasix) Allergy Mild Hives Verified 08/13/24 08:09 [facility] Disclaimer: The information contained in this section may have been updated after the patient was seen, as this information can be updated by other users. Medical History Sleep apnea Anxiety History of gastroesophageal reflux (GERD) History of anemia Edema Liver cancer Colorectal cancer Abnormal nuclear cardiac imaging test Liver masses Atypical angina Iliac artery aneurysm Hypomagnesemia Hypokalemia On statin therapy Hypertension Orthostatic hypotension Mild diastolic dysfunction HLD (hyperlipidemia) Abdominal aortic aneurysm (AAA) Bilateral carotid artery stenosis Dyspnea TREV (obstructive sleep apnea) Tobacco user Diabetes mellitus Abnormal EKG CAD (coronary artery disease) Surgical History History of liver biopsy History of hernia repair History of coronary artery bypass graft History of cardiac cath stent x4 Hx of CABG Family History Other Family history of diabetes mellitus type I Family history of heart disease Social History (Updated 08/13/24 @ 08:10 by Mame Alonso RN) Smoking Status: Current every day smoker tobacco type: cigarettes packs per day: 1 second hand exposure: Yes alcohol intake: current alcohol intake frequency: a few times a month substance use type: denies use current occupational status: retired Travel in the last 8 weeks: Inside the [place] household members: none housing: house caffeine: No Have you lived/traveled outside [place] in past 30 days?: No Contact w/someone who lives/traveled outside [place] past 30 days?: No Exposure to someone with infectious disease in past 14 days?: No Do you have a fever (greater than 100.4 F or 38 C)?: No Have you tested positive for COVID-19: No Exposed to someone with COVID-19 in past 14 days?: No Do you have a sore throat?: No Do you have a cough?: No Do you have any weakness?: Yes Do you have any diarrhea?: No Are you experiencing any unusual bleeding?: No Do you have any muscle aches/pain?: No Do you have any abdominal pain?: No Are you experiencing loss of taste or smell?: No Other Medical History Have you received the Flu Vaccine for this season: Yes Have you received the Pneumonia Vaccine: Yes ROS Obtained: Yes Systems reviewed as appropriate & no additional complaints except as documented Physical Exam General General appearance: alert and in no apparent distress Head Head exam: atraumatic Eye Eye exam: Present normal appearance ENT ENT exam: Present normal external ear exam Neck Neck exam: Present full ROM Chest Chest inspection: Present symmetric chest wall rise Respiratory Respiratory exam: Present normal lung sounds bilaterally; Absent respiratory distress Cardiovascular Cardiovascular exam: Present regular rate and normal rhythm Abdominal Exam Abdominal exam: Present soft, distention (Patient reports that his liver is chronically enlarged) and tenderness (Mild right upper quadrant and suprapubic tenderness); Absent guarding exam: Present deferred Extremities Exam Extremities exam: Present normal inspection Back Exam Back exam: Present normal inspection; Absent tenderness or vertebral tenderness Neurological Exam Neurological exam: Present alert, oriented X3, CN II-XII intact and other (No focal neurological deficits) Psychiatric Psychiatric exam: Present normal affect Skin Skin exam: Present warm and dry Medical Decision Making Medical Records Screening: Per USPSTF and CDC recommendations, given the prevalence of disease in our region, it is our hospital?s policy to screen for HIV and viral Hepatitis for all patients aged 18 and over and those with ongoing risk factors. Michael Inquiry Pt receiving controlled substance: No Vital Signs: 08/13/24 08:01 08/13/24 08:35 08/13/24 09:00 Temperature 97.5 F L Temperature Source Oral Pulse Rate 96 H 102 H Pulse Rate [Left Radial] 104 H Respiratory Rate 16 18 Blood Pressure 112/91 H 134/62 Blood Pressure [Right Arm] 129/60 Blood Pressure Mean 95 Blood Pressure Mean [Right Arm] 83 Blood Pressure Source Blood Pressure Source [Right Arm] Automatic Cuff Blood Pressure Position Blood Pressure Position [Right Arm] Sitting 02 Sat by Pulse Oximetry 98 97 96 Oxygen Delivery Method Room Air Room Air 08/13/24 09:30 08/13/24 10:01 08/13/24 10:30 Temperature Temperature Source Pulse Rate 93 H 102 H 98 H Pulse Rate [Left Radial] Respiratory Rate 16 16 Blood Pressure 128/63 125/59 L 122/72 Blood Pressure [Right Arm] Blood Pressure Mean 84 81 Blood Pressure Mean [Right Arm] Blood Pressure Source Blood Pressure Source [Right Arm] Blood Pressure Position Blood Pressure Position [Right Arm] 02 Sat by Pulse Oximetry 97 98 98 Oxygen Delivery Method Room Air 08/13/24 11:00 08/13/24 11:24 08/13/24 11:28 Temperature 97.9 F Temperature Source Oral Pulse Rate 96 H 107 H 104 H Pulse Rate [Left Radial] Respiratory Rate 16 Blood Pressure 117/64 114/68 114/68 Blood Pressure [Right Arm] Blood Pressure Mean Blood Pressure Mean [Right Arm] Blood Pressure Source Automatic Cuff Blood Pressure Source [Right Arm] Blood Pressure Position Sitting Blood Pressure Position [Right Arm] 02 Sat by Pulse Oximetry 98 97 Oxygen Delivery Method Room Air Room Air Room Air Lab Data Lab Results 08/13/24 08:35: WBC 6.4, RBC 4.22 L, Hgb 11.9 L, Hct 37.2 L, MCV 88.2, MCH 28.2, MCHC 32.0, RDW 15.3, Plt Count 188, MPV 11.2 H, Neut % (Auto) 84.3 H, Lymph % (Auto) 6.8 L, [place] % (Auto) 8.1, Eos % (Auto) 0.2, Baso % (Auto) 0.3, Neut # (Auto) 5.4, Lymph # (Auto) 0.4 L, [place] # (Auto) 0.5, Eos # (Auto) 0.0, Baso # (Auto) 0.0, PT 12.8 H, INR 1.16 H, Sodium 132 L, Potassium 3.4 L, Chloride 97 L, Carbon Dioxide 23, Anion Gap 15.4 H, BUN 25 H, Creatinine 1.20, Estimated Creat Clear 79, Estimated GFR 60, Est GFR ( Amer) 72, Glucose 119 H, Calcium 9.1, Total Bilirubin 2.2 H, AST 317 H*, ALT 60, Alkaline Phosphatase 811 H, Total Protein 7.6, Albumin 3.7, Globulin 3.9 H, Albumin/Globulin Ratio 0.9 L, Lipase 100 08/13/24 08:35 08/13/24 08:35 Orders (Tests/Meds): ED MEDICATIONS Discontinued Medications Generic Name Dose Route Start Last Admin Trade Name Freq PRN Reason Stop Dose Admin Lactated Ringer's 1,000 mls @ 999 mls/hr 08/13/24 08:12 08/13/24 08:16 Lactated Ringer's 1000 Ml Bag IV 08/13/24 09:12 999 mls/hr .Q1H1M ONE Administration ORDERS Category Date Time Status CXR --portable [XR chest portable] Stat Exams 08/13/24 08:07 Completed Pelvis XR 1-2 views [XR pelvis 1-2V] Stat Exams 08/13/24 08:07 Completed CBC w/Auto Diff [Complete Blood Count Auto Diff] Stat Lab 08/13/24 08:35 Completed CMP [Comprehensive Metabolic Panel] Stat Lab 08/13/24 08:35 Completed Lipase Stat Lab 08/13/24 08:35 Completed PT INR [Prothrombin Time INR] Stat Lab 08/13/24 08:35 Completed Medical Decision Narrative: Fernando Joyner is a 69y male with a past medical history of coronary stents on blood thinning medication (patient does not remember which one he takes), hypertension, diabetes mellitus, hyperlipidemia and diagnosis of metastatic liver cancer made of last week who presents to the emergency department after a fall. Patient states that he has been feeling progressively weak with decreased appetite for several weeks. He reports being diagnosed with metastatic liver cancer last week and is going to in 1 week for MRI and a second opinion as he was told that there is nothing that they can do to treat him. He states that this morning, he had gotten up out of bed and walked into a laundry basket, causing him to fall forward into the laundry. He was unable to get up due to weakness and reports no new pain since the fall. He notes that he lives with another individual who was unable to help him get up as well, so 911 was called. He denies any head trauma, chest pain, palpitations, dizziness, lightheadedness or shortness of breath. He reports chronic right upper quadrant abdominal pain that is unchanged from his baseline. On arrival, patient is mildly tachycardic, breathing comfortably on room air with appropriate oxygen saturation of 98% SpO2. Normal tension. Physical exam, stated above, revealed a chronically ill-appearing male in no acute distress. He is communicating and answering questions appropriately. He has a nonfocal neurological exam. Abdomen appears distended within the large liver with some mild tenderness in the right upper quadrant epigastric region. Cardiopulmonary exam is unremarkable. He has no tenderness in the chest, C/T/L-spine. Differential diagnosis includes, but is not limited to: Mechanical fall, worsening metastatic disease, malnutrition, dehydration, hypoglycemia, among others. Workup in the emergency department included: Chest x-ray, pelvis x-ray, CMP, CBC, lipase. Patient was treated with 1 L of lactated ringer X-ray imaging was interpreted by me personally prior to official radiology read. No acute fractures in the hip. No acute intrathoracic findings on chest x-ray. See final radiology reports for details. Lab work with no leukocytosis. Mild anemia with hemoglobin of 11.6 and hematocrit of 37.2. AST elevated at 317 but appears close to baseline. ALT normal at 60. ALP elevated at 811 but close to baseline. Mild elevation of bilirubin to 2.2, which is increased mildly from previous which was also elevated. Lipase normal at 100. Mild hyponatremia with sodium 132 and mild hypokalemia of 3.4. Anion gap mildly elevated at 15.4. Glucose normal at 119. On reassessment, patient remained in stable condition and was able to ambulate here in the emergency department. Workup today demonstrated no acute findings and his fall sounds mostly mechanical in nature. It is felt that his progressive weakness is likely secondary to his underlying cancer/malignancy. Patient was able to ambulate here in the emergency department without difficulty and was amenable to going home with plan to follow-up with oncology at in 1 week as scheduled. His roommate noted that they had discussed him going hospice care with the oncology team here, however he still plans on pursuing a second opinion at . Return precautions were given. All questions were answered and he was then discharged from the emergency department in stable condition. Critical Care Critical Care Time Critical Care Time: No
[2024-08-13] MEDS: LACTATED RINGERS 1000ML 1,000 ML 999 ML IV (08:16)
--- NOTE | 2024-08-13 08:22 | PC.NURSE ---
xray at bs
[2024-08-13 08:49] LABS: Basophils % 0.3 % (0.1-2.0); Eosinophils % 0.2 % (0.1-12.0); Hematocrit 37.2 % (42.0-52.0); Hemoglobin 11.9 g/dL (14.1-18.0); Lymphocytes # 0.4 K/mm3 (0.7-4.5); Lymphocytes % 6.8 % (10-50); Mean Corpuscular Hemoglobin 28.2 pg (27.0-31.2); Mean Corpuscular Volume 88.2 fl (80-94); Mean Platelet Volume 11.2 fl (7.4-10.4); Monocytes # 0.5 K/mm3 (0.1-1.0); Monocytes % 8.1 % (1.7-9.3); Neutrophils # 5.4 K/mm3 (1.8-7.8); Neutrophils % 84.3 % (37.0-80.0); Platelet Count 188 K/mm3 (142-424); Red Blood Count 4.22 M/mm3 (4.60-6.20); Red Cell Distribution Width 15.3 % (11.5-17.5); White Blood Count 6.4 K/mm3 (4.8-10.8)
[2024-08-13 08:55] LABS: INR 1.16 (0.9-1.1); Prothrombin Time 12.8 seconds (10.1-12.5)
--- NOTE | 2024-08-13 10:42 | PC.NURSE ---
Called lab to check on CMP/Lipase results, sent @ [id number] and are still unresulted. Kerry in the lab states the analyzer did not pick it up so they are re-running it now . Dr Dickson notified of this.
[2024-08-13 10:47] LABS: Albumin Level 3.7 g/dl (3.5-5.0); Chloride 97 mmol/L (98-107); Potassium 3.4 mmoL/L (3.5-5.1); Sodium 132 mmol/L (136-145)
[2024-08-13 10:49] LABS: Blood Urea Nitrogen 25 mg/dl (9-20); Creatinine Clearance Estimated 79 mL/min (50-200); Estimated Glomerular Filt Rate 60 ml/min (>60); GFR (African American) 72 ML/MIN (>60)
[2024-08-13 10:50] LABS: Alanine Aminotransferase 60 U/L (12-78); Albumin/Globulin Ratio 0.9 (1.1-1.8); Alkaline Phosphatase 811 U/L (38-126); Anion Gap 15.4 mEq/L (5-15); Aspartate Amino Transferase 317 U/L (17-59); Bilirubin,Total 2.2 mg/dl (0.2-1.3); Calcium 9.1 mg/dl (8.4-10.2); Carbon Dioxide 23 mmol/L (22.0-30.0); Globulin 3.9 g/dL (1.3-3.2); Glucose 119 mg/dl (74-100); Lipase 100 U/L (23-300); Total Protein,Serum 7.6 g/dl (6.3-8.2)
--- NOTE | 2024-08-13 11:01 | PC.NURSE ---
er at bedside
--- NOTE | 2024-08-13 11:11 | PC.NURSE ---
ambulated pt in hallway and back to room about 25 feet. pt tolerated ok
== END 2024-08-13 11:34 | disposition home or self-care (01) ==
PROVIDERS: Emergency Provider Student in an Organized Health Care Education/Training Program; PCP Nurse Practitioner Family
DX: R53.1 Weakness (principal); I10 Essential (primary) hypertension; E11.9 Type 2 diabetes mellitus without complications; E78.5 Hyperlipidemia, unspecified; C22.9 Malignant neoplasm of liver, not specified as primary or secondary; Z79.01 Long term (current) use of anticoagulants; Z95.5 Presence of coronary angioplasty implant and graft; W01.0XXA Fall on same level from slipping, tripping and stumbling without subsequent striking against object, initial encounter; Z72.0 Tobacco use
CPT/HCPCS: 71045; 72170; 80053; 83690; 85025; 85610; 96360; 99284; J7120

== ENCOUNTER 2024-08-21 13:33 | Outpatient (CLI) | payer MEDICARE, SELFPAY ==
--- NOTE | 2024-08-21 13:38 | CT_ITS ---
FINAL REPORT CLINICAL HISTORY: TOBACCO USE smoker, 54 years. less than 1 ppd. hx liver cancer COMPARISON: 11/10/2021 FINDINGS: CT CHEST LOW DOSE SCREENING HISTORY: Screening exam for lung cancer. 69-year-old male, current smoker, 82-nela-cdtb history. DOSE: CTDI vol: 2.90 mGy, DLP: 102.64 mGy*cm TECHNIQUE: Axial CT without IV contrast administration using low dose protocol. This study was performed with techniques to keep radiation doses as low as reasonably achievable, (ALARA). Individualized dose reduction techniques using automated exposure control or adjustment of mA and/or kV according to the patient's size were employed. No acute lung disease is present. There has been interval development of innumerable pulmonary nodules throughout the lung causey bilaterally, which are most suggestive of metastatic disease. Most are subcentimeter nodules, however there is a lingular nodule measuring 11 mm, best seen on image #57 of series 3, and a 9 mm anterior right upper lobe nodule best seen on image #49 of series 3. No pleural or pericardial effusion is seen. No adenopathy or mass lesion is present. 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 There is a small amount of ascites in the upper quadrants of the abdomen bilaterally. IMPRESSION: Interval development of innumerable pulmonary nodules when compared to the prior exam of 2021, most suggestive of metastases as described. LUNG RADS CATEGORY 4X RECOMMENDATION: Continued oncologic evaluation is suggested. Reviewed, Interpreted and Dictated by Josh Key MD Transcribed by Sandi Rebolledo Authenticated and [facility]
== END 2024-08-21 23:59 | disposition home or self-care (01) ==
LOC: RAD 13:33
PROVIDERS: PCP Nurse Practitioner Family; Visit Provider Nurse Practitioner Family
DX: F17.210 Nicotine dependence, cigarettes, uncomplicated (principal)
CPT/HCPCS: 71271